=== PATIENT | male | born 1950 | race Caucasian/White ===

== ENCOUNTER → 2016-07-01 | Outpatient (CLI) | payer OTHER ==
[~2016-07-01] MED LIST: ACET-24 PO; BTP80 PO; CLC100 PO; CLR10 PO; DOCU-94 PO; ENOX120I SQ; FEXO1TAB49 PO; FLUT0.15 NAE; FRRG PO; KETO2SHA TOP; LDXS20 TOP; LSX20 PO; MORP-157 PO; RXC5 PO; SIMV-151 PO; SOTA80TA PO; SPR25 PO; TAMS0.4C38 PO; TRAM-10 PO; WARF-246 PO; WARF7.5T4 PO
[2016-07-01 12:35] LABS: CALCIUM 9.1 mg/dl (8.5-10.1)
[2016-07-01 12:40] LABS: ALT/SGPT 24 U/L (12-78); BLOOD UREA NITROGEN 17 mg/dl (7-18); BUN/CREATININE RATIO 22.1 (10-20); CARBON DIOXIDE 29 mmol/L (21-32); CHLORIDE 106 mmol/L (98-107); CHOLESTEROL 125 mg/dl (0-200); CREATININE 0.78 mg/dl (0.60-1.40); GLUCOSE 87 mg/dl (70-99); POTASSIUM 4.4 mmol/L (3.5-5.1); SODIUM 141 mmol/L (136-145)
[2016-07-01 12:43] LABS: CHOLESTEROL/HDL RATIO 2.8; HDL CHOLESTEROL 45 mg/dl; LDL CHOLESTEROL CALCULATED 66 mg/dl; TRIGLYCERIDES 68 mg/dl (0-150); VERY LOW DENSITY LIPOPROT CALC 14 mg/dl
[2016-07-01 12:53] LABS: URINE APPEARANCE CLEAR (CLEAR); URINE BILIRUBIN NEG (NEG); URINE COLOR YELLOW; URINE EPITHELIAL CELL AUTO 0-5 /lpf (0-5); URINE NITRITE NEG (NEG); URINE PH 6.5 (4.5-7.5); URINE SPECIFIC GRAVITY 1.019 (1.000-1.030); UROBILINOGEN NEG (NEG); ZZUR CULT IF INDIC CLEAN CATCH NO
[2016-07-01 13:08] LABS: MANUAL MICROSCOPIC REQUIRED? NO; REVIEW REQ? NO
== END | disposition home or self-care (01) ==
LOC: C.LABBFT 08:56
PROVIDERS: ATTEND Family Medicine
DX: R39.15 Urgency of urination (principal); I48.91 Unspecified atrial fibrillation; E78.5 Hyperlipidemia, unspecified

== ENCOUNTER → 2016-09-16 | Outpatient (CLI) | payer OTHER ==
[~2016-09-16] MED LIST changes: -ACET-24 PO; -FRRG PO; -MORP-157 PO
[2016-09-16 17:53] LABS: COMPLETE YES; EOS % 4.7 %; HEMATOCRIT 44.5 % (42-52); IG% 0.2 %; LYMPH % 23.6 %; MEAN CORPUSCULAR HEMOGLOBIN 30.8 pg (25-34); MEAN CORPUSCULAR HGB CONC 34.6 g/dl (32-36); MEAN PLATELET VOLUME 11.7 fL (7.4-10.4); MONO % 6.5 %; PLATELET COUNT 203 K/uL (130-400); WHITE BLOOD COUNT 8.49 K/uL (4.8-10.8)
[2016-09-16 18:03] LABS: ALT/SGPT 24 U/L (12-78); AST/SGOT 13 U/L (15-37); BLOOD UREA NITROGEN 19 mg/dl (7-18); BUN/CREATININE RATIO 22.6 (10-20); CARBON DIOXIDE 32 mmol/L (21-32); CHLORIDE 106 mmol/L (98-107); CREATININE 0.82 mg/dl (0.60-1.40); GLUCOSE 85 mg/dl (70-99); POTASSIUM 4.6 mmol/L (3.5-5.1); SODIUM 140 mmol/L (136-145)
[2016-09-16 18:06] LABS: ALKALINE PHOSPHATASE 68 U/L (45-117)
== END | disposition home or self-care (01) ==
LOC: C.LABBFT 11:34
PROVIDERS: ATTEND Family Medicine
DX: R19.7 Diarrhea, unspecified (principal)

== ENCOUNTER 2016-12-07 10:17 | Inpatient (IN) | payer OTHER ==
[2016-11-01 14:06] VITALS: BMI 35.0
--- NOTE | 2016-11-01 14:43 | PAT Medication Instructions ---
Service Date Nov 01, 2016. Current Home Medication List Docusate Sodium (Colace), 1 CAP PO QAM Fexofenadine Hcl (Yolande Allergy), 1 TAB PO QAM Fluocinonide (Fluocinonide), 1 APPLN TOP UD Fluticasone Propionate (Nasal) (Flonase Allergy Relief), 2 SPRAYS FABIO QPM Furosemide (Furosemide), 40 MG PO QAM Ketoconazole (Topical) (Ketoconazole), 1 APPLN TOP Q2D Simvastatin (Simvastatin), 20 MG PO HS Sotalol Hcl (Sotalol Hcl), 120 MG PO BID Spironolactone (Spironolactone), 25 MG PO QAM Tamsulosin Hcl (Flomax), 0.4 MG PO QPM Tramadol (Ultram), 100 MG PO TID PRN for Pain Warfarin Sod (Jantoven), 1.5 TAB PO 4XWEEK Warfarin Sodium (Warfarin Sodium), 7.5 MG PO MONWEDFRI Medication Instructions For Your Scheduled Surgery - Check with surgeon/coumadin clinic for instructions: Warfarin Sod (Jantoven), 1.5 TAB PO 4XWEEK Warfarin Sodium (Warfarin Sodium), 7.5 MG PO MONWEDFRI - Hold the following medications 24 hours prior to surgery: Ketoconazole (Topical) (Ketoconazole), 1 APPLN TOP Q2D Fluocinonide (Fluocinonide), 1 APPLN TOP UD - Hold the following medications the morning of surgery: Spironolactone (Spironolactone), 25 MG PO QAM Furosemide (Furosemide), 40 MG PO QAM Docusate Sodium (Colace), 1 CAP PO QAM Fexofenadine Hcl (Yolande Allergy), 1 TAB PO QAM - Take the following medications the morning of surgery with a sip of water: Tramadol (Ultram), 100 MG PO TID PRN for Pain (okay to take up to 4 hours prior to surgery if needed) Sotalol Hcl (Sotalol Hcl), 120 MG PO BID - Take the following medications as scheduled the night before surgery: Tramadol (Ultram), 100 MG PO TID PRN for Pain (if needed) Tamsulosin Hcl (Flomax), 0.4 MG PO QPM Sotalol Hcl (Sotalol Hcl), 120 MG PO BID Simvastatin (Simvastatin), 20 MG PO HS Fluticasone Propionate (Nasal) (Flonase Allergy Relief), 2 SPRAYS FABIO QPM If you have any questions please call us at [phone] or [phone] or [phone]
--- NOTE | 2016-11-01 15:25 | DIAGNOSTIC IMAGING REPORT ---
CHEST PREADMISSION(PA/LAT) CLINICAL HISTORY: Preoperative chest COMPARISON STUDY: 05/11/2015 FINDINGS: The heart is enlarged. There is no failure. There is no focal pulmonary consolidation. There are no pleural effusions. Postsurgical changes involve the left shoulder.[ IMPRESSION: Mild cardiomegaly. No acute findings. Electronically signed by: Riccardo Perez M.D. 11/01/2016 3:24 PM Dictated Date/Time: 11/01/2016 3:24 PM
[2016-11-01 16:18] LABS: BASO % 0.1 %; BASO ABS # 0.01 K/uL (0-0.2); COMPLETE YES; EOS % 3.2 %; HEMATOCRIT 43.7 % (42-52); IG% 0.1 %; LYMPH % 22.8 %; LYMPH ABS # 1.63 K/uL (1.2-3.4); MEAN CELL VOLUME 90.5 fL (80-100); MEAN CORPUSCULAR HGB CONC 33.2 g/dl (32-36); MEAN PLATELET VOLUME 11.7 fL (7.4-10.4); MONO % 6.7 %; NEUT % 67.1 %; PLATELET COUNT 186 K/uL (130-400); RED BLOOD COUNT 4.83 M/uL (4.7-6.1); WHITE BLOOD COUNT 7.16 K/uL (4.8-10.8)
[2016-11-01 16:37] LABS: INR 2.4 (0.9-1.1); PARTIAL THROMBOPLASTIN RATIO 1.5; PROTHROMBIN TIME (PATIENT) 26.5 SECONDS (9.0-12.0)
[2016-11-01 17:02] LABS: BLOOD UREA NITROGEN 18 mg/dl (7-18); BUN/CREATININE RATIO 25.4 (10-20); C-REACTIVE PROTEIN < 0.29 mg/dl (0-0.29); CARBON DIOXIDE 30 mmol/L (21-32); CHLORIDE 107 mmol/L (98-107); CREATININE 0.72 mg/dl (0.60-1.40); GLUCOSE 85 mg/dl (70-99); POTASSIUM 4.2 mmol/L (3.5-5.1); SODIUM 141 mmol/L (136-145)
--- NOTE | 2016-11-28 16:25 | HISTORY & PHYSICAL EXAMINATION ---
DATE OF ADMISSION: 12/07/2016 CHIEF COMPLAINT: Persistent left knee pain, discomfort and swelling. HISTORY OF PRESENT ILLNESS: The patient is a 66-year-old very active lang, who had his left knee replaced by Dr. Ann abdullahi in 1998. He did quite well for several years, but is a very active lang and over time, started develop pain and discomfort in his knee. I saw him back in 2008 and diagnosed with a loose knee replacement back then. His workup was all negative for infection including a normal C-reactive protein and a normal sed rate. We also aspirated his knee and cultures were negative. He kind of went about his way and then I saw him about a year ago and scheduled him for revision again. He canceled and decided to have his shoulder fixed. The shoulder has now recovered. He would now like to have his knee fixed. He describes persistent pain, discomfort and swelling in his knee. The more he walks, the more it hurts. He limps all day long and by the end of day, it gets pretty swollen. It also feels unstable. He would like to have this revised. Of note, the patient has a history of atrial fibrillation. He does report a history of stroke without residual sequelae back in 2011. He is on chronic Coumadin treatment. PAST MEDICAL HISTORY: Significant for, 1. Atrial fibrillation on Coumadin. 2. Hypertension. 3. Elevated cholesterol. 4. Sleep apnea. 5. History of TIA without sequelae. 6. Spine arthritis. 7. Obesity with a BMI of 35.6. PAST SURGICAL HISTORY: Includes: 1. Left knee arthroscopy. 2. Left total knee replacement done on 03/02/1996. 3. Umbilical hernia repair. 4. Forefoot reconstruction. 5. Reverse shoulder arthroplasty done in 2015. 6. Thrombectomy/pseudoaneurysm in 2011. ALLERGIES: None. CURRENT MEDICINES: Include, 1. Tramadol. 2. Warfarin, 4 days on 5 mg and 3 days on 7.5 mg. 3. Flomax. 4. Sotalol. 5. Simvastatin. 6. Spironolactone. 7. Unspecified med. 8. Yolande. 9. Probiotic. SOCIAL HISTORY: A 66-year-old male lang from [place]. 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 His tax associate is Dr. Ortega. Does not smoke. FAMILY HISTORY: Noncontributory. REVIEW OF SYSTEMS: Negative for diabetes. Denies any active neurological or vascular problems. He is on chronic Coumadin. History of TIA in the past. No sequelae. No history of DVT. PHYSICAL EXAMINATION: GENERAL: Physical examination reveals a large, middle-aged male. He looks to be in pretty good health. Looks older than stated age. HEENT: Benign. NECK: Supple. No lymphadenopathy. LUNGS: Clear to auscultation. HEART: Has an irregularly irregular rhythm. ABDOMEN: Soft, nontender, and nondistended. EXTREMITIES: Grossly neurovascularly intact except as follows: Examination of the left knee reveals the patient walks with the use of a cane. He has got a moderate sized knee effusion. Range of motion is full extension by 110 degrees of flexion. He does have laxity to varus valgus stressing. He has got a well-healed incision on the front of his knee. He has got an oblique medial incision from the previous open meniscectomy. X-RAYS: The x-rays of the left knee were reviewed. It shows a Biomet Maxim posterior stabilized total knee replacement. The knee looks pretty well aligned. There is some osteolysis and lucency underneath the tibial tray and lucency around the anterior flange of the femoral component. He has got some calcifications in his quad. LABORATORY DATA: Most recent sed rate is 9. C-reactive protein 0.29. His knee aspirate on 08/16/2015 revealed a 530 white cells with 15% polys and 85% mononuclear cells. Cultures were no growth. ASSESSMENT: A 66-year-old gentleman now 20 years out from a left knee replacement with significant osteolysis and loosening of likely both the femoral and tibial components. Negative infectious workup. PLAN: We talked about treatment. He would like to have his knee revised. We are going to take him to the operating room and do a left total knee replacement. As long as it is not infected, we will revise it. If there is a concern of infection, we will place an antibiotic spacer. The risks and benefits of this procedure were explained to the patient including, but not limited to DVT, PE, , infection, neurological injury, vascular injury, bleeding problem, pain, limited range of motion, stiffness, failure to relieve symptoms, incomplete relief of symptoms, persistent pain, infection, etc. The patient understands and desires to proceed. Informed consent was obtained. He will stop his Coumadin 5 days preop. He will likely need to bridge with Lovenox. We will have Dr. Ortega from him in the hospital. As far as discharge plans, he is planning to be discharged to home using [facility] home health program. He will need a stat PT and INR on the morning of surgery. MARY
[~2016-12-07] VITALS: Ht 179.1 cm; Wt 111.5 kg
[~2016-12-07 10:17] MED LIST changes: +ACETAMINOPHEN 500 MG TAB PO SCH; -BTP80 PO; +BUPIVACAINE 0.25% 30 ML VIAL ONE; +BUPIVACAINE 0.5 % 5 MG/1 ML PF 10ML VIAL ONE; +BUPIVACAINE LIPOSOME 266 MG, BUPIVACAINE/EPINEPHRINE INJ 50 ML, SODIUM CHLORIDE 0.9% PF... INFIL SCH; +CEFAZOLIN 2000 MG/60 ML D5W 60 ML IV SCH; -CLC100 PO; -CLR10 PO; -ENOX120I SQ; +FAMOTIDINE 20 MG TAB PO SCH; +FENTANYL CITRATE INJ 50 MCG/1 ML 2 ML VIAL ONE; +GABAPENTIN 300 MG CAP PO SCH; +LACTATED RINGER'S 1000ML 1,000 ML IV SCH; +LACTATED RINGER'S 1000ML 500 ML IV ONE; +LACTATED RINGER'S 1000ML IV SCH; +METOCLOPRAMIDE HCL 10 MG TAB PO SCH; +MIDAZOLAM HCL 1 MG/ML 2ML VIAL ONE; -RXC5 PO; +SCOPOLAMINE 1.5 MG TDSY TD SCH; -WARF7.5T4 PO
[2016-12-07] MEDS ORDERED: HYDROmorphone INJ 1 MG/ML SYR IV PRN (10:30)
[2016-12-07] MEDS ORDERED: EpHEDrine SULFATE INJ 50 MG/ML AMP IV PRN (10:30)
[2016-12-07] MEDS ORDERED: ONDANSETRON INJ 2 MG/ML 2 ML VIAL IV PRN ×2 (10:30→16:45)
[2016-12-07] MEDS ORDERED: PHENYLEPHRINE 100MCG/ML 5ML SYR IV PRN (10:30)
[2016-12-07] MEDS ORDERED: FENTANYL CITRATE INJ 50 MCG/1 ML 2 ML VIAL IV PRN (10:30)
[2016-12-07] MEDS ORDERED: ATROPINE SULFATE 0.1 MG/ML 5ML SYR IV PRN (10:30)
[2016-12-07 10:44] VITALS: BP 127/76; PULSE 70; TEMP 36.5; O2SAT 95; Ht 179.1 cm; Wt 111.5 kg
[2016-12-07] MEDS ORDERED: EpHEDrine SULFATE INJ 50 MG/ML AMP ONE (11:00)
[2016-12-07] MEDS ORDERED: ENOX120I SQ (11:17)
[2016-12-07 12:09] LABS: PARTIAL THROMBOPLASTIN RATIO 1.1; PROTHROMBIN TIME (PATIENT) 10.4 SECONDS (9.0-12.0)
--- NOTE | 2016-12-07 12:10 | History & Physical Bridge Note ---
H&P Re-Evaluation Bridge Note: I have examined the patient, reviewed the History & Physical and in the interval since the performance of the History & Physical I have noted the following changes of clinical significance: No changes noted
[2016-12-07] MEDS ORDERED: BACITRACIN 50000 UNIT VIAL ONE ×2 (12:17→15:37)
[2016-12-07] MEDS ORDERED: BUPIVACAINE/EPINEPHRINE 0.25% 1:200,000 30 ML VIAL ONE (12:17)
[2016-12-07] MEDS ORDERED: SODIUM CHLORIDE 0.9% PF 50 ML VIAL ONE (12:17)
[2016-12-07] MEDS ORDERED: BUPIVACAINE LIPOSOME 1/3% 266 MG/20 ML VIAL INFIL ONE (12:17)
[2016-12-07] MEDS ORDERED: VANCOMYCIN HCL 1000MG/20ML VIAL ONE (12:18)
[2016-12-07] MEDS ORDERED: MIDAZOLAM HCL 1 MG/ML 2ML VIAL ONE ×2 (12:45→14:08)
[2016-12-07] MEDS ORDERED: PROPOFOL IV EMULSION 10 MG/ML 20 ML VIAL IV ONE ×3 (12:46→16:09)
[2016-12-07] MEDS ORDERED: PHENYLEPHRINE 100MCG/ML 5ML SYR ONE (12:51)
[2016-12-07] MEDS ORDERED: FENTANYL CITRATE INJ 50 MCG/1 ML 2 ML VIAL ONE ×2 (15:06→16:40)
[2016-12-07] MEDS ORDERED: ONDANSETRON INJ 2 MG/ML 2 ML VIAL ONE (16:17)
[2016-12-07] MEDS ORDERED: HYDROmorphone INJ 2 MG/ML SYR/VIAL ONE (16:25)
[2016-12-07] MEDS ORDERED: CEFAZOLIN SOD 1 GM VIAL ONE (16:27)
--- NOTE | 2016-12-07 16:34 | [facility] Post Operative Brief Note ---
Immediate Operative Summary Operative Date Dec 07, 2016. Pre-Operative Diagnosis Left knee osteolysis, loosening of left total knee arthroplasty Post-Operative Diagnosis Left knee osteolysis, loosening of left total knee arthroplasty Procedure(s) Performed Left total knee revision, cemented Surgeon Dr. Daniel Metrology Engineer Surgeon(s) Apollo Burgos PA-C Estimated Blood Loss 200ml Findings Loose TKR Fluids (cc crystalloids) 2200 cc Specimens Microbiology #1- left knee joint fluid: gram stain, routine culture and sensitivity, anaerobic/aerobic, out of room at 1316 Frozen #1- left knee synovium: number of wbc's per high power field, out of room at 1323 Permanent Specimen A: Explanted hardware left knee Drains None Anesthesia Spinal + General Complication(s) None Disposition Recovery Room / PACU
[2016-12-07] MEDS ORDERED: MAGNESIUM HYDROXIDE SUSP 30 ML UDC PO PRN (16:45)
[2016-12-07] MEDS ORDERED: SILVER SULFADIAZINE 1% CR 50 GM JAR EXT PRN (16:45)
[2016-12-07] MEDS ORDERED: ALUMINUM/MAGNESIUM/SIMETH (MAALOX MAX) 30 ML UDC PO PRN (16:45)
[2016-12-07] MEDS ORDERED: TAMSULOSIN HCL 0.4 MG CAP PO PRN (16:45)
[2016-12-07] MEDS ORDERED: BISACODYL 10 MG SUPP PR PRN (16:45)
[2016-12-07] MEDS ORDERED: DiphenhydrAMINE HCL 50 MG/ML VIAL IV PRN (16:45)
[2016-12-07] MEDS ORDERED: ZOLPIDEM TARTRATE 5 MG TAB PO PRN (16:45)
[2016-12-07] MEDS ORDERED: HYDROmorphone INJ 0.5 MG/0.5 ML SYR IV PRN (16:45)
--- NOTE | 2016-12-07 17:21 | Anesthesiology Progress Note ---
Anesthesia Post Op Note Date & Time Dec 07, 2016 at 17:20 Vital Signs Pain Intensity: 0 Vital Signs Past 12 Hours Date Time Temp Pulse Resp B/P (MAP) Pulse Ox O2 Delivery O2 Flow Rate FiO2 12/07/16 17:10 63 16 114/71 97 Nasal Cannula 2 12/07/16 17:00 68 13 112/70 100 Oxymask 6 12/07/16 16:50 65 12 108/63 99 Oxymask 10 12/07/16 16:43 36.0 61 12 106/72 100 Oxymask 10 12/07/16 10:44 36.5 70 20 127/76 95 Room Air Notes Mental Status: alert / awake / arousable, participated in evaluation Pt Amnestic to Procedure: Yes Nausea / Vomiting: adequately controlled Pain: adequately controlled Airway Patency, RR, SpO2: stable & adequate BP & HR: stable & adequate Hydration State: stable & adequate Neuraxial Anesthesia: was administered, sensory block is resolving Anesthetic Complications: no major complications apparent Surgical procedure lasted significantly longer than anticipated. Spinal block became insufficient towards end of procedure and patient was converted to general anesthesia with an LMA for completion without incident.
[2016-12-07 17:40] VITALS: BP 107/68; PULSE 60; O2SAT 100
[2016-12-07] MEDS: CHECK SCOPOLAMINE PATCH PLACEMENT SCH ×2 (17:40→23:38)
--- NOTE | 2016-12-07 17:48 | DIAGNOSTIC IMAGING REPORT ---
LEFT KNEE 2 VIEWS History: Left total knee arthroplasty. Degenerative arthritis. Postop. FINDINGS: The patient is status post a left total knee arthroplasty. The hardware is intact. No fracture or dislocation. Skin anju are in place. IMPRESSION: Left total knee arthroplasty. No evidence for hardware complication. Electronically signed by: Pipe Garsia M.D. 12/07/2016 5:47 PM Dictated Date/Time: 12/07/2016 5:46 PM
[2016-12-07 18:45] VITALS: BP 105/72; PULSE 68; TEMP 36.9; O2SAT 99
[2016-12-07] MEDS: D5W AND 1/2NSS + 20MEQ KCL 1,000 ML IV SCH (18:55)
--- NOTE | 2016-12-07 18:56 | PROGRESS NOTE ---
DATE: 12/07/2016 SUBJECTIVE: A 66-year-old gentleman postop from a left total knee revision. Very complex revision with a lot of osteolysis. He is doing well. Not having any pain yet. No chest pain or shortness of breath. Not feeling dizzy or lightheaded. OBJECTIVE: VITAL SIGNS: Temperature is 36.1. Vital signs stable. GENERAL: Reveals a healthy, pleasant, middle-aged male. He is sitting up in bed and talking to his spouse. He looks comfortable. LUNGS: Clear to auscultation. HEART: Has an irregularly irregular rhythm. ABDOMEN: Soft, nontender, nondistended. EXTREMITIES: Grossly neurovascularly intact except as follows: Examination of the left leg reveals the dressing to be clean, dry, and intact. He can dorsiflex and plantarflex his foot appropriately. He is neurologically intact. X-RAYS: X-rays of the left knee from recovery room were reviewed. It shows a left cemented total knee revision. Components looked to be in good position. No signs of problems. ASSESSMENT: A 66-year-old gentleman postop from a left total knee revision. This is a very complex revision. He is doing well. His pain is controlled. Neurologically intact. PLAN: 1. DVT prophylaxis including thigh-high TEDs, SCDs, and back on his Coumadin starting tonight. We will load him with 10 mg. We will start prophylactic Lovenox 24 hours postoperatively. I think with the nature of his surgery, I think it is too aggressive to start more aggressive Lovenox immediately. 2. PT/OT. Weightbearing as tolerated. Left total knee protocol. 3. IV antibiotics x24 hours. 4. Pain control, doing well with current pain regimen. 5. DISPOSITION: He is being discharged to home with some home health once adequately recovered.
[2016-12-07 19:47] VITALS: BP 115/75; PULSE 81; TEMP 36.5; O2SAT 100
[2016-12-07] MEDS: KETOROLAC TROMETHAMINE 15 MG/ML VIAL IV. SCH (20:08)
[2016-12-07] MEDS: CEFAZOLIN IV 2,000 MG in SYRINGE 0 ML IV SCH (20:08)
[2016-12-07] MEDS: WARFARIN SOD 10 MG TAB PO SCH (20:10)
[2016-12-07] MEDS: FLUTICASONE PROPIONATE NA SPR 16 GM BTL NAE SCH (20:30)
[2016-12-07] MEDS: TAMSULOSIN HCL 0.4 MG CAP PO SCH (20:31)
[2016-12-07] MEDS: SIMVASTATIN 20 MG TAB PO SCH (20:32)
[2016-12-07] MEDS: DOCUSATE SODIUM 100 MG CAP PO SCH (20:32)
[2016-12-07] MEDS: SOTALOL HCL 80 MG TAB PO SCH (20:32)
[2016-12-07] MEDS: SENNA 8.6 MG TAB PO SCH (20:33)
[2016-12-07 20:45] VITALS: BP 132/80; PULSE 88; TEMP 36.4; O2SAT 97
[2016-12-07] MEDS: TAPENTADOL ER 50 MG TABCR PO SCH (20:50)
[2016-12-07] MEDS: ACETAMINOPHEN 500 MG TAB PO SCH (21:44)
[2016-12-07 23:00] VITALS: BP 115/75; PULSE 77; TEMP 36.9; O2SAT 96
--- NOTE | 2016-12-08 00:19 | OPERATIVE REPORT ---
DATE OF OPERATION: 12/07/2016 SURGEON: Jj Daniel MD. CONCRETE ROD BUSTER: KATLYN Rivera. PREOPERATIVE DIAGNOSIS: Aseptic loosening left total knee replacement. POSTOPERATIVE DIAGNOSIS: Aseptic loosening left total knee replacement with loosening of the femoral component, extensive osteolysis and polyethylene wear. PROCEDURE PERFORMED: Revision left total knee arthroplasty. COMPLICATIONS: None. ESTIMATED BLOOD LOSS: 200 mL FLUID REPLACEMENT: 2200 mL crystalloid fluid replacement. TOURNIQUET TIME: Two separate tourniquet times; first tourniquet time was 120 minutes at 300 mmHg, the tourniquet was then let down for 40 minutes and then back up for an additional 26 minutes at 300 mmHg. ANESTHESIA: Spinal with general. SPECIMENS: 1. Left knee implants. 2. Frozen section which revealed less than 5 polys per high-powered field. 3. Left knee joint fluid which revealed no WBCs, no organisms on Gram stain. OPERATIVE INDICATIONS: The patient is a 66-year-old lang who is 20+ years out from a left knee replacement. He did pretty well, but over the past 5-10 years, he has developed persistent pain, discomfort and instability and swelling in his knee. I saw him 5 years ago. He just put up with this for a long time until we actually scheduled for revision a year ago but he elected to have his shoulder done beforehand. He has now become more debilitated by his knee pain. He is using a cane to get along. He had an extensive workup including sed rate, C-reactive protein and several aspirations in the past which have all been negative. No growth. The patient indicated for surgical treatment. OPERATIVE FINDINGS: Operative findings revealed grossly loose femoral component. The tibial component was not loose. There was extensive osteolysis of the femur. He had extensive metaphysial bone loss. He did have some distal portions of the condyle intact to support the implant. He had less extensive osteolysis of the tibia. OPERATIVE IMPLANTS: Operative implants consisted of: 1. A Biomet Vanguard 360 posterior stabilized left femoral component with medial and lateral 5 mm distal augments with a 20 x 80 mm stem and 5 mm offset. 2. A 75 mm tibial tray with a 16 x 80 mm stem with a 5 mm offset and large cruciate wing. 3. An 18 mm posterior stabilized polyethylene. OPERATIVE PROCEDURE: The patient taken to the operating room, identified and placed on the operating table in supine position. All contact areas were appropriately padded. IV antibiotics provided by anesthesia team. Spinal anesthetic had been implemented in the holding area. Saucedo catheter was placed in sterile fashion. Left thigh tourniquet was then placed and left lower extremity was then prepped and draped in usual sterile fashion. Left leg was elevated and exsanguinated with Esmarch and tourniquet was placed at 300 mmHg. An anterior approach of the left knee was then performed through a longitudinal incision centered over the patella. Sharp dissection was carried out through the subcutaneous tissues down to the level of the extensor mechanism. A medial parapatellar arthrotomy incision was made. This fluid was sent off for analysis. Gram stain revealed no WBCs, no organisms. Complete synovectomy of the suprapatellar pouch and medial and lateral gutters was performed. The synovium was sent for frozen section which revealed less than 5 polys per high-powered field. We elected to proceed with rotation. I did an extensive synovectomy. I then removed the polyethylene. I then removed the femoral component using the Cierra extractor as it was grossly loose. Attention was then drawn to the tibia. The tibial interface was defined with the use of a curette and rongeur. I then used a small saw to break up the interface as best as possible. I then used a combination of stacked osteotome technique to try and elevate the tray. I then attached the Cierra extractor and removed the tibial tray with large portion of cement mantle as well. I then very carefully removed the remainder of the cement. We then went to prepare the bone. Attention was then drawn to the tibia. I reamed the tibia up to a size 16. I then used an intramedullary guide to cut the tibia about 2 mm off the most deficient aspect of the lateral tibial plateau which was the most deficient area. We then sized this to a size 75. I used a 5 offset adapter and prepared the tibia. A provisional tibial implant was placed and attention was then drawn to the femur. The distal femur was then entered with the intramedullary entry drill. I then reamed up to a size 20. I then used a 5-degree distal cutting block and cut the distal femur, taking 5 mm off the most prominent area of the medial femoral condyle soft tissue where we did get down to a bony condyle. It was fairly small. I then sized the femur to a 72.5. I then aligned the AP cutting block and adjusted it with the 5 mm offset device and pinned it in place. The anterior cut, anterior chamfer cuts, posterior cut, posterior chamfer cuts were made. I then assembled the provisional component. We made some slight adjustments to this and then implanted it. I then cut for the box. The femoral component trial was then assembled. We then placed this and at this point the tourniquet time was 120 minutes, we let the tourniquet down. I then trialed this and the 18 mm insert fit most appropriately. We then proceeded with assembling the implants. The tourniquet had been let down. I irrigated the wound extensively. I spent quite a bit of time getting rid of all the fibrous debris at both the tibial and femoral interfaces. There was a very large metaphyseal defect of the distal femur. After the components were assembled and I debrided this back to stable bone tissue, the tourniquet was then placed back up. I then mixed triple batch of Palacos G cement with 2 grams of vancomycin. I then implanted the femoral component, followed by the tibial component. We did leave a little bit of cement posteriorly on purpose as he had large voids and I wanted to try and make sure we had as much support for the component as possible. A trial implant was placed and knee was brought out into full extension until cement hardened. A final cement check was then performed. I then placed the permanent 18 mm insert. Attention was then drawn toward closing. I did inject locally with 100 mL of combination of 20 mL of Exparel, 30 mL of normal saline, 50 mL of 0.25% Marcaine with epinephrine. The tourniquet was then let down with second tourniquet time of 26 minutes. Hemostasis was assured with use of electrocautery. The wound was once again irrigated. The extensor mechanism was then closed with a combination of #1 PDS suture and #1 Vicryl suture in a [id number] fashion. Extensor mechanism was checked and found to be intact. Subcutaneous tissues were then closed with 2-0 Dexon suture in a buried interrupted fashion. Skin was closed with skin anju. Leg was then cleaned and dried, and a sterile dressing composed of Xeroform, 4 x 4's, sterile cast padding and Mikey bandage was applied. The patient was then brought out of general anesthesia and transferred to the recovery room in stable condition. The patient tolerated the procedure well with no complications. All needle and sponge counts were correct at the end of the operation. I attest to the content of the Intraoperative Record and any orders documented therein. Any exceptions are noted below. MTDD
[2016-12-08] MEDS: D5W AND 1/2NSS + 20MEQ KCL 1,000 ML IV SCH ×3 (01:58→18:11)
[2016-12-08] MEDS: KETOROLAC TROMETHAMINE 15 MG/ML VIAL IV. SCH ×3 (01:59→14:12)
[2016-12-08 03:12] VITALS: BP 107/69; PULSE 74; TEMP 36.7; O2SAT 95
[2016-12-08] MEDS: CEFAZOLIN IV 2,000 MG in SYRINGE 0 ML IV SCH (04:20)
[2016-12-08] MEDS: OXYCODONE HCL IR 5 MG TAB (IMMEDIATE RELEASE) PO PRN (05:18)
[2016-12-08] MEDS: ACETAMINOPHEN 500 MG TAB PO SCH ×3 (05:55→21:29)
[2016-12-08 06:12] LABS: HEMATOCRIT 32.9 % (42-52); MEAN CELL VOLUME 89.6 fL (80-100); MEAN CORPUSCULAR HEMOGLOBIN 30.2 pg (25-34); MEAN CORPUSCULAR HGB CONC 33.7 g/dl (32-36); MEAN PLATELET VOLUME 11.4 fL (7.4-10.4); PLATELET COUNT 146 K/uL (130-400); RED BLOOD COUNT 3.67 M/uL (4.7-6.1); WHITE BLOOD COUNT 8.63 K/uL (4.8-10.8)
[2016-12-08 06:38] LABS: PROTHROMBIN TIME (PATIENT) 10.9 SECONDS (9.0-12.0)
[2016-12-08 06:44] LABS: BUN/CREATININE RATIO 20.3 (10-20); CREATININE 0.72 mg/dl (0.60-1.40)
[2016-12-08 07:06] VITALS: BP 96/64; PULSE 87; TEMP 36.7; O2SAT 95
[2016-12-08] MEDS: CHECK SCOPOLAMINE PATCH PLACEMENT SCH ×3 (08:00→23:28)
[2016-12-08] MEDS ORDERED: RXC5 PO (08:33)
[2016-12-08] MEDS ORDERED: MORP-157 PO (08:33)
[2016-12-08] MEDS ORDERED: FRRG PO (08:33)
[2016-12-08 09:00] VITALS: BP 107/57
[2016-12-08] MEDS ORDERED: DOCUSATE SODIUM 100 MG CAP PO SCH (09:00)
[2016-12-08] MEDS: FUROSEMIDE 20 MG TAB PO SCH (09:00)
[2016-12-08] MEDS: SPIRONOLACTONE 25 MG TAB PO SCH (09:00)
[2016-12-08] MEDS: SOTALOL HCL 80 MG TAB PO SCH ×2 (09:00→21:28)
[2016-12-08] MEDS: FERROUS GLUCONATE 324 MG TAB PO SCH ×3 (09:14→18:10)
[2016-12-08] MEDS: TAPENTADOL ER 50 MG TABCR PO SCH ×2 (09:15→21:00)
[2016-12-08] MEDS: MULTIVITAMIN TAB PO SCH (09:15)
[2016-12-08] MEDS: DOCUSATE SODIUM 100 MG CAP PO SCH ×2 (09:15→21:26)
[2016-12-08] MEDS: FEXOFENADINE HCL 180 MG TAB PO SCH (09:15)
[2016-12-08] MEDS: PANTOprazole SOD 40 MG TAB PO SCH (09:16)
--- NOTE | 2016-12-08 10:33 | Cardiology Consultation ---
Cardiology Consultation Date of Consultation: Dec 08, 2016 Requesting Physician: Fredy Attending [facility]: Dorita (Renan Hernandez PA-C) History of Present Illness Mr. Anderson is a 66 year old male who is being seen at the request of Dr. Daniel. Reason for consultation is routine postoperative care. Primary outpatient [facility] is Dr. Michi Ortega. Patient is status post 12/07/2016 left total knee arthroplasty by Dr. Daniel Patient seen early today (~8:45 AM). Lone complaint is that of left knee discomfort. He denies chest pain, palpitations, or dyspnea. He denies cough, chest congestion, orthopnea, or PND. Notes chronically having "kankles." Appetite is down from his norm. (Renan Hernandez PA-C) Past Medical/Surgical History Problem List: Past Medical and Surgical History: Paroxysmal atrial fibrillation, predominantly controlled in sinus rhythm with sotalol per documentation. Past acute thrombotic stroke, right middle cerebral artery distribution, embolic , June of 2011, status post urgent thrombectomy. Small patent foramen ovale with minimal shunt. Chronic Coumadin anticoagulation Severe obstructive sleep apnea. 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 Prior cardiac catheterization November 2012 without coronary artery disease. Hypertension Dyslipidemia Deviated nasal septum 1988 Obesity, BMI not known Osteoarthrosis. Status post remote (1996) left knee replacement. Rotator cuff surgery Umbilical hernia repair (Renan Hernandez PA-C) Family History Family History: Father at 69 with Parkinson's disease. Mother with breast cancer, history of atrial fibrillation. Sister with colon cancer at 47. (Renan Hernandez PA-C) Cancer Diabetes mellitus Heart disease Hypertension (Jason Kevin, DO) Social History Social History: Nonsmoker. No smokeless tobacco use. No significant alcohol consumption. [employer]. (Renan Hernandez PA-C) Review Of Systems General: No fever or chills. Head: No headaches. Cardiovascular: See above. Pulmonary: See above. Gastrointestinal: No nausea, vomiting, or diarrhea Musculoskeletal: See above. Neurological: See above. Complete review of systems is as stated above, negative or noncontributory. (Renan Hernandez PA-C) Allergies Coded Allergies: Adhesives (Verified Allergy, Unknown, AGUILAR WITH SPECIAL TAPE FOR SHOULDER SURG, 11/01/16) NO KNOWN DRUG ALLERGIES (Verified Allergy, Unknown, NONE, 12/07/16) Medications Reported Home Medications Medications Dose Route/Sig Max Daily Dose Days Date Category Dose Instructions Ms Contin (Morphine Sulfate) 15 Mg Tab 15 Mg PO Q12 10 12/08/16 Rx Take for 10 days to lessen pain. Ferrous Gluconate 324 Mg Tab 324 Mg PO BIDM 30 12/08/16 Rx Take to restore blood count. Oxycodone HCl 5 Mg Tab 5-10 Mg PO Q6H PRN 30 12/08/16 Rx Take as needed for Pain. Lovenox (Enoxaparin Sodium) 120 Mg/0.8 Ml Inj 120 Mg SQ Q12H 12/07/16 Reported Warfarin Sodium 5 Mg Tab 1 Tab PO 4XWK 90 11/01/16 Reported SUN/TUES/THURS/SAT Flomax (Tamsulosin Hcl) 0.4 Mg Cap 0.4 Mg PO QPM 11/01/16 Reported Flonase Allergy Relief (Fluticasone Propionate (Nasal)) 50 Mcg/Act Spr 2 Sprays FABIO QPM 11/01/16 Reported Yolande Allergy (Fexofenadine Hcl) 180 Mg Tab 1 Tab PO QAM 14 11/01/16 Reported Colace (Docusate Sodium) 100 Mg Cap 1 Cap PO QAM 30 11/01/16 Reported Fluocinonide 20 Appln/20 Ml Soln 1 Appln TOP UD 05/17/14 Reported APPLY AFTER SHOWERING. Ketoconazole (Ketoconazole (Topical)) 2 % Sha 1 Appln TOP Q2D 05/17/14 Reported Simvastatin 20 Mg Tab 20 Mg PO HS 05/17/14 Reported Spironolactone 25 Mg Tab 25 Mg PO QAM 05/17/14 Reported Furosemide 20 Mg Tab 40 Mg PO QAM 05/17/14 Reported Warfarin Sodium 5 Mg Tab 7.5 Mg PO MONWEDFRI 05/17/14 Reported PM Sotalol Hcl 80 Mg Tab 120 Mg PO BID 12/27/13 Reported Ultram (Tramadol HCl) 50 Mg Tab 100 Mg PO TID PRN 09/29/13 Reported (Renan Hernandez PA-C) Physical Exam Vital Signs (Last 8hrs): Last 8 Hrs Date Time Temp Pulse Resp B/P (MAP) Pulse Ox O2 Delivery O2 Flow Rate FiO2 12/08/16 07:25 Room Air 12/08/16 07:06 36.7 87 16 96/64 (75) 95 Room Air 12/08/16 03:12 36.7 74 17 107/69 (82) 95 Room Air General Appearance: Alert and Oriented x3. NAD. Head: Normocephalic Atraumatic. Eyes: PER, EOMI, conjunctiva and sclera clear Neck: Supple. No carotid bruits noted. No overt JVD (70 degrees) Respiratory: Breath sounds clear to auscultation bilaterally. Cardiovascular: Irregularly irregular around 100 bpm. Soft systolic murmur. Abdomen: +BS. Soft. Nontender. No abdominal bruits. Extremities: Mild lower extremity edema on the right. No cyanosis. Distal pulses 1/4 bilaterally on the right. Dressing to the left lower extremity. Neuro: No focal deficits. Psychiatric: Normal affect. (Renan Hernandez PA-C) Data Last 24 Hours Test 12/07/16 11:05 12/08/16 05:33 Prothrombin Time 10.4 SECONDS 10.9 SECONDS Prothromb Time International Ratio 1.0 1.0 Activated Partial Thromboplast Time 29.2 SECONDS Partial Thromboplastin Ratio 1.1 White Blood Count 8.63 K/uL Red Blood Count 3.67 M/uL Hemoglobin 11.1 g/dL Hematocrit 32.9 % Mean Corpuscular Volume 89.6 fL Mean Corpuscular Hemoglobin 30.2 pg Mean Corpuscular Hemoglobin Concent 33.7 g/dl RDW Standard Deviation 42.1 fL RDW Coefficient of Variation 13.0 % Platelet Count 146 K/uL Mean Platelet Volume 11.4 fL Sodium Level 139 mmol/L Potassium Level 4.0 mmol/L Chloride Level 105 mmol/L Carbon Dioxide Level 30 mmol/L Anion Gap 4.0 mmol/L Blood Urea Nitrogen 15 mg/dl Creatinine 0.72 mg/dl Est Creatinine Clear Calc Drug Dose 125.5 ml/min Estimated GFR () 111.9 Estimated GFR (Non- 96.5 BUN/Creatinine Ratio 20.3 Random Glucose 116 mg/dl Calcium Level 8.0 mg/dl November 24, 2012 Coronary Angiography ([facility]): Left main: Large caliber vessel with mild disease. LAD: Mildly diseased. 1st diagonal: A small, mildly diseased. 2nd diagonal: Small, mildly diseased. The 3rd diagonal: Small, mildly diseased. LCX: Nondominant. 20% lesion in the proximal circumflex. RCA: Dominant. Mildly diseased November 03, 2016 TTE Interpretation Summary (as per Dr. Ortega): The left ventricular cavity size is normal. The LV wall thickness is mildly increased ( concentric). The basal septum is thickened and angulated consistent with sigmoid septum. The left ventricular wall motion is normal. The qualitative LV ejection fraction is 55-59% (normal). Mild aortic valve sclerosis is present. There is trace aortic insufficiency. The aortic root and proximal ascending aorta are mildly enlarged. There is focal thickening of the anterior mitral valve leaflet(s). There is borderline posterior mitral leaflet prolapse. Mild mitral regurgitation is present. The mitral regurgitation jet is eccentric. Moderate tricuspid regurgitation is present. Mild pulmonary hypertension is present. Telemetry: Nonmonitored bed. EKG: Requested, pending. (Renan Hernandez PA-C) Assessment & Plan 66-year-old male status post 12/07/2016 left total knee revision/replacement as described. As anticipated, patient has lapsed into atrial fibrillation ~100 bpm. DVT prophylaxis Lovenox ordered by Dr. Daniel initially given the nature of the procedure; Coumadin resumed 12/07/2016. Recommend full bridge back to proper Coumadin anticoagulation as soon as determined to be safe given the observed atrial fibrillation as well as history of prior embolic stroke. EKG requested. Sotalol to be continued as prescribed, 120 mg every 12 hours. Recommend holding furosemide and spironolactone this AM given observed hypotension, resuming later today or in the AM of 12/09/2016 as hemodynamics permit. Further recommendations pending the above as well as evaluation by Dr. Kevin. (Renan Hernandez PA-C) CARDIOLOGY ATTENDING ADDENDUM: The patient was seen and personally examined. Agree with Renan Hernandez PA-C's findings and plans as documented above. Continue current meds for AFib, pt. may be in chronic stages of AFib. (Jason Kevin, DO)
[2016-12-08 10:43] VITALS: BP 112/62; PULSE 86; TEMP 36.8; O2SAT 96
[2016-12-08] MEDS: METOCLOPRAMIDE HCL INJ 5 MG/ML 2 ML VIAL IV PRN (11:33)
--- NOTE | 2016-12-08 13:14 | PROGRESS NOTE ---
DATE: 12/08/2016 SUBJECTIVE: A 66-year-old gentleman with multiple underlying medical comorbidities postop day 1 from a left revision total knee replacement for aseptic loosening and extensive polyethylene wear. He is doing well. He is a bit sore but very manageable. No chest pain or shortness of breath. Not feeling dizzy or lightheaded. Had a little bit of some GI upset earlier but doing better now. OBJECTIVE: VITAL SIGNS: Temperature 36.8. Vital signs stable. PHYSICAL EXAMINATION: GENERAL: Reveals a pleasant, middle-aged male. He is sitting up in his bed eating lunch and looks pretty comfortable. EXTREMITIES: Examination of the left leg reveals dressing to be clean, dry, and intact. He can dorsiflex and plantarflex his foot appropriately. He is neurologically intact. LABORATORY DATA: Hemoglobin 11.1, hematocrit 32.9. Electrolytes are stable. His INR is 1.0. ASSESSMENT: A 66-year-old gentleman postop day 1 from a left complex revision knee arthroplasty. He is doing well. Pain is controlled. He is neurologically intact. PLAN: 1. DVT prophylaxis including thigh-high TEDs, SCDs, and back on his Coumadin. We bolused him just trying to get him in the therapeutic range as quick as possible. We will start him on prophylactic Lovenox 24 hours postop. I do not think it is mukherjee to put him on a heavier dose of Lovenox unless absolutely medically necessary due to the increased risk of bleeding. 2. PT/OT. Weightbearing as tolerated. Left total knee protocol. 3. Pain control, doing well with current pain regimen. 4. Disposition: He is hoping to discharge to home with some home health once adequately recovered.
[2016-12-08 15:26] VITALS: BP 125/72; PULSE 104; TEMP 36.6; O2SAT 94
[2016-12-08] MEDS ORDERED: WARFARIN SOD 5 MG TAB PO ONE (16:00)
[2016-12-08] MEDS: WARFARIN SOD 10 MG TAB PO SCH (18:10)
[2016-12-08] MEDS: ENOXAPARIN 30 MG/0.3 ML SYR SQ SCH (18:11)
[2016-12-08] MEDS ORDERED: ACET-24 PO (20:10)
--- NOTE | 2016-12-08 20:14 | Discharge Instructions ---
Discharge Instructions Date of Service Dec 08, 2016. Admission Reason for Admission: Left Knee Pain; Left Knee Degenerative Joint Disea Discharge Discharge Diagnosis / Problem: Left Knee Replacement Discharge Goals Goal(s): Decrease discomfort, Improve function, Increase independence, Improve disease control, Therapeutic intervention Activity Recommendations Activity Limitations: per Instructions/Follow-up section Weightbearing Status: Left weightbearing . Instructions / Follow-Up Instructions / Follow-Up ACTIVITY RECOMMENDATIONS: Physical Therapy: * You will go to physical therapy three times each week for four to six weeks after your surgery in order to regain your knee range of motion and to retrain your knee to work properly. * It is just as important to make sure you are getting your knee perfectly straight as it is to regain your knee bend. * Taking a pain pill an hour before therapy can help you have a more productive and comfortable therapy session. Home Exercise: * You were shown a series of exercises (heel props, heel slides, etc.) in the hospital. Do these exercises three to four times each day including the exercises you were shown in physical therapy. Walking: * Get up and walk several times each day. For the first four weeks, try not to stand or walk for more than one hour at a time. If you do stand or walk for more than one hour, you will not hurt anything, but your knee and leg will likely swell. * As you feel comfortable, you may change from the walker or crutches to a cane and then to independent walking. MEDICATIONS: New Medicine: * You will likely be taking one or more of these medications: 1. MS Contin - A long-acting pain medication. Take 1 tablet twice a day for the first ten days to decrease your baseline level of pain. 2. Oxycodone - A quick and shorter-acting pain medication. Take one to two tablets every four to six hours to lessen your pain. 3. Coumadin - Thins your blood to lessen the chance of forming a blood clot. The dose of this is different for each person and is based on your blood tests that are done every Tuesday and . * The most common side effects of pain medicine and iron are nausea and constipation. If nausea or constipation is too much of a problem or if you have any questions about your new medicines or doses, call [facility] at . We will try to help you manage these issues. VERY IMPORTANT TO READ AND REVIEW" Pain: * The immediate post-operative period after knee replacement surgery is often quite painful. * You are given a prescription for pain medicine. You should take it, as directed, when you need it, especially before physical therapy and before going to bed. Pain that interferes with sleep is very common and can last several months. * You will likely need pain medicine for the first four to six weeks. It will not stop all of the pain. The pain will lessen and as you feel better, you may change to milder pain medicine such as Tylenol. * The most common side effects of pain medicine are nausea and constipation, so don't take more than you need. SPECIAL CARE INSTRUCTIONS: TEDs/Elastic Stockings: * The white elastic stockings help limit swelling and prevent blood clots from forming in your legs. The more you wear them, the more they work. * Wear them for six weeks after knee replacement surgery and four weeks after partial knee replacement. Prevention of Infection: * Take antibiotics one hour before any dental cleaning, dental work, urological procedure, gastrointestinal procedure or any invasive surgery in order to prevent your new joint from getting infected. * You may get the antibiotics from the doctor performing the procedure or you may call our office at before and we will call in a prescription to the pharmacy of your choice. Things to Watch For: * Drainage from the incision site that occurs more than one week after your surgery. * Severely increased knee/leg pain or swelling. * Increased redness at the incision site. * Fever above 102 degrees Fahrenheit. * Unusual chest pain or shortness of breath. * Unusual pain or burning with urination. Call [facility] at with any of the above problems or if you have any questions about your medicines or recovery. FOLLOW UP VISIT: Make an appointment to see your doctor for approximately two weeks after surgery for a progress check and staple removal by calling the office at . Current Hospital Diet Patient's current hospital diet: Regular Diet Discharge Diet Recommended Diet: Regular Diet Procedures Procedures Performed: Left total knee revision, cemented Pending Studies Studies pending at discharge: no Medical Emergencies . Who to Call and When: Medical Emergencies: If at any time you feel your situation is an emergency, please call [phone] immediately. . Non-Emergent Contact Non-Emergency issues call your: Surgeon . "Provider Documentation" section prepared by Jj Daniel. . VTE Core Measure Inpt VTE Proph given/why not?: Warfarin (Coumadin), Radha Cowan, SCD's
[2016-12-08] MEDS: SENNA 8.6 MG TAB PO SCH (21:00)
[2016-12-08] MEDS: FLUTICASONE PROPIONATE NA SPR 16 GM BTL NAE SCH (21:28)
[2016-12-08] MEDS: SIMVASTATIN 20 MG TAB PO SCH (22:25)
[2016-12-08] MEDS: TAMSULOSIN HCL 0.4 MG CAP PO SCH (22:25)
[2016-12-08 23:25] VITALS: BP 107/68; PULSE 88; TEMP 36.5; O2SAT 93
[2016-12-09] MEDS: OXYCODONE HCL IR 5 MG TAB (IMMEDIATE RELEASE) PO PRN ×2 (02:00→06:00)
[2016-12-09] MEDS: D5W AND 1/2NSS + 20MEQ KCL 1,000 ML IV SCH ×2 (02:01→10:05)
[2016-12-09 05:51] LABS: INR 1.7 (0.9-1.1); PROTHROMBIN TIME (PATIENT) 18.8 SECONDS (9.0-12.0)
[2016-12-09] MEDS: ACETAMINOPHEN 500 MG TAB PO SCH ×2 (05:58→13:22)
[2016-12-09 06:00] VITALS: TEMP 36.7
[2016-12-09] MEDS: ENOXAPARIN 30 MG/0.3 ML SYR SQ SCH (06:05)
--- NOTE | 2016-12-09 07:39 | PROGRESS NOTE ---
DATE: 12/09/2016 SUBJECTIVE: 66-year-old gentleman postop day 2 from a left knee replacement. He is doing pretty well. Pretty painful last night, but doing a bit better this morning. No chest pain or shortness of breath. Not feeling dizzy or lightheaded. His reflux symptoms have improved. OBJECTIVE: VITAL SIGNS: Temperature is 36.7. Vital signs stable. PHYSICAL EXAMINATION: GENERAL: Reveals a healthy, pleasant, middle-aged male. He is sitting up in bed, looks reasonably comfortable. EXTREMITIES: Examination of the left leg reveals the dressing to be clean, dry, and intact. He can dorsiflex and plantarflex his foot appropriately. He is neurologically intact. LABORATORY DATA: INR is 1.7. ASSESSMENT: 66-year-old gentleman postop day 2 from a left knee replacement, doing well. Pain is reasonably well controlled. Medically appears stable. PLAN: 1. DVT prophylaxis including thigh-high TEDs, SCDs, and Coumadin. He is nearly therapeutic on his Coumadin. Will continue on Lovenox today and should be therapeutic on his Coumadin by tomorrow. 2. PT/OT. Weightbearing as tolerated. Left total knee protocol. 3. Pain control, doing well with current pain regimen. 4. Cardiac care as per the upsetting machine operator. 5. Disposition: Plan to discharge to home with some home health later today.
[2016-12-09] MEDS: CHECK SCOPOLAMINE PATCH PLACEMENT SCH (07:52)
[2016-12-09] MEDS: METOCLOPRAMIDE HCL INJ 5 MG/ML 2 ML VIAL IV PRN (07:56)
[2016-12-09 08:08] VITALS: BP 103/57; PULSE 105; TEMP 36.7; O2SAT 96
[2016-12-09] MEDS: FUROSEMIDE 20 MG TAB PO SCH (09:00)
[2016-12-09] MEDS: SOTALOL HCL 80 MG TAB PO SCH (09:00)
[2016-12-09] MEDS: SPIRONOLACTONE 25 MG TAB PO SCH (09:00)
[2016-12-09] MEDS: TAPENTADOL ER 50 MG TABCR PO SCH (09:00)
[2016-12-09] MEDS: MULTIVITAMIN TAB PO SCH (09:26)
[2016-12-09] MEDS: FERROUS GLUCONATE 324 MG TAB PO SCH ×2 (09:26→13:22)
[2016-12-09] MEDS: PANTOprazole SOD 40 MG TAB PO SCH (09:26)
[2016-12-09] MEDS: FEXOFENADINE HCL 180 MG TAB PO SCH (09:27)
--- NOTE | 2016-12-09 09:48 | Cardiology Follow-Up ---
Subjective General Date of Service: Dec 09, 2016. Chief Complaint: S/P 12/07/2016 left total knee arthroplasty by Dr. Daniel Pt evaluation today including: conversation w/ patient, physical exam, chart review, lab review, review of studies, review of inpatient medication list History of Present Illness Patient seen and examined. Notes issues yesterday and last night including nausea, left knee discomfort, "too much time between pain meds." Notes being "mixed up about things last night," resolved. Notes speaking to his this AM who noted how much better he sounded. Denies chest pain or shortness of breath. Intermittently aware of some "mild flutters." No lightheadedness, dizziness, near syncope, or syncope. No orthopnea, PND, or worsening peripheral edema. Allergies Coded Allergies: Adhesives (Verified Allergy, Unknown, AGUILAR WITH SPECIAL TAPE FOR SHOULDER SURG, 11/01/16) NO KNOWN DRUG ALLERGIES (Verified Allergy, Unknown, NONE, 12/07/16) Social History Hx Tobacco Use In Past Year?: No Hx Alcohol Use - Type And Amou: No ( ) Hx Substance Use - Type And Am: No Problem List Medical Problems: (1) Bleeding on Coumadin Status: Acute Physical Exam Vital Signs Last Vital Signs Documentation Date Time Temp Pulse Resp B/P (MAP) Pulse Ox O2 Delivery O2 Flow Rate FiO2 12/09/16 08:08 36.7 105 16 103/57 (72) 96 Room Air 12/07/16 19:47 2.0 Physical Exam Constitutional: Level of Distress: NAD Psychiatric: Mental Status: active & alert Orientation: to time, to place, to person Memory: recent memory normal, remote memory normal Head: normocephalic, atraumatic Neck: pertinent finding (No overt JVD) Lungs: Respiratory effort: no dyspnea Auscultation: breath sounds normal, no wheezing, no rales/crackles, no rhonchi Cardiovascular: Heart Auscultation: tachycardia, II/ PHYLLIS, irregular rate rhythm Peripheral Pulses: Radial Pulse: normal on the left, normal on the right Dorsalis Pedis Pulse: decreased on the left, decreased on the right Abdomen: Bowel Sounds: normal Extremities: no cyanosis, no clubbing, edema Neurologic: Cranial Nerves: grossly intact Assessment and Plan Assessment and Plan Status post 12/07/2016 left total knee revision/replacement History of paroxysmal atrial fibrillation (? progressing per persistent/ permanent) RECOMMENDATIONS: Continue Sotalol for now Lovenox bridge back to proper Coumadin anticoagulation given observed atrial fibrillation as well as history of prior embolic stroke Resume furosemide and spironolactone as previously prescribed. Recommend follow-up with Dr. Ortega post discharge to consider alternative management. CARDIOLOGY ATTENDING ADDENDUM: The patient was seen and personally examined. Agree with Renan Hernandez PA-C's findings and plans as documented above. Laboratory Results Last 24 Hours Test 12/09/16 05:27 Prothrombin Time 18.8 SECONDS Prothromb Time International Ratio 1.7
[2016-12-09] MEDS: DOCUSATE SODIUM 100 MG CAP PO SCH (10:12)
[2016-12-09 10:32] VITALS: BP 103/57; PULSE 105; TEMP 36.7; O2SAT 96
[2016-12-09] MEDS ORDERED: WARFARIN SOD 7.5 MG TAB PO ONE (16:00)
== END 2016-12-09 14:15 | disposition home health service (06) | DRG 468 ==
LOC: C.ACU 10:17 → C.3E 10:46 → ENRESERV 17:06
PROVIDERS: ADMIT Orthopaedic Surgery Sports Medicine; ATTEND Orthopaedic Surgery Sports Medicine
PROC: 0SWU0JZ Revision of Synthetic Substitute in Left Knee Joint, Femoral Surface, Open Approach (ICD-10-PCS; principal; 2016-12-07 12:45)
PROC: 0SWW0JZ Revision of Synthetic Substitute in Left Knee Joint, Tibial Surface, Open Approach (ICD-10-PCS; principal; 2016-12-07 12:45)
DX: T84.033A Mechanical loosening of internal left knee prosthetic joint, initial encounter (principal); I48.91 Unspecified atrial fibrillation; I10 Essential (primary) hypertension; E78.00 Pure hypercholesterolemia, unspecified; G47.00 Insomnia, unspecified; E66.9 Obesity, unspecified; Z68.35 Body mass index [BMI] 35.0-35.9, adult; Z79.01 Long term (current) use of anticoagulants; Z79.899 Other long term (current) drug therapy; Y83.1 Surgical operation with implant of artificial internal device as the cause of abnormal reaction of the patient, or of later complication, without mention of misadventure at the time of the procedure; Y79.2 Prosthetic and other implants, materials and accessory orthopedic devices associated with adverse incidents; Z86.73 Personal history of transient ischemic attack (TIA), and cerebral infarction without residual deficits

== ENCOUNTER → 2016-12-20 | Outpatient (CLI) | payer OTHER ==
[~2016-12-20] MED LIST changes: +ACET-24 PO; -ACETAMINOPHEN 500 MG TAB PO SCH; -BUPIVACAINE 0.25% 30 ML VIAL ONE; -BUPIVACAINE 0.5 % 5 MG/1 ML PF 10ML VIAL ONE; -BUPIVACAINE LIPOSOME 266 MG, BUPIVACAINE/EPINEPHRINE INJ 50 ML, SODIUM CHLORIDE 0.9% PF... INFIL SCH; -CEFAZOLIN 2000 MG/60 ML D5W 60 ML IV SCH; -FAMOTIDINE 20 MG TAB PO SCH; -FENTANYL CITRATE INJ 50 MCG/1 ML 2 ML VIAL ONE; +FRRG PO; -GABAPENTIN 300 MG CAP PO SCH; -LACTATED RINGER'S 1000ML 1,000 ML IV SCH; -LACTATED RINGER'S 1000ML 500 ML IV ONE; -LACTATED RINGER'S 1000ML IV SCH; -METOCLOPRAMIDE HCL 10 MG TAB PO SCH; -MIDAZOLAM HCL 1 MG/ML 2ML VIAL ONE; +RXC5 PO; -SCOPOLAMINE 1.5 MG TDSY TD SCH
[2016-12-20 10:35] LABS: INR 2.2 (0.9-1.1); PROTHROMBIN TIME (PATIENT) 24.1 SECONDS (9.0-12.0)
--- NOTE | 2017-01-07 12:34 | CODING QUERY NO DIAGNOSIS ---
Valid Physician Order Needed A valid physician order must be submitted in order to properly bill for the service(s) provided, including date of service(s), valid diagnosis, and physician signature. If these tests are done on a recurring basis the original physican order must be submitted in order to code and bill for the service(s) provided. Please fax us the original, signed physician order so that we may expedite billing to [phone] DOS 12/20/16 * PT/INR Thank you [facility] Information Management
== END | disposition home or self-care (01) ==
LOC: C.LABSPEC 10:17
PROVIDERS: ATTEND Orthopaedic Surgery Sports Medicine
DX: I48.91 Unspecified atrial fibrillation (principal); Z47.1 Aftercare following joint replacement surgery; I10 Essential (primary) hypertension

== ENCOUNTER → 2017-09-26 | Outpatient (CLI) | payer OTHER ==
[~2017-09-26] MED LIST changes: +SPIR25TA6 PO; -SPR25 PO
[2017-09-26 12:48] LABS: ALT/SGPT 20 U/L (12-78); BLOOD UREA NITROGEN 19 mg/dl (7-18); CALCIUM 8.7 mg/dl (8.5-10.1); CARBON DIOXIDE 31 mmol/L (21-32); CHOLESTEROL 100 mg/dl (0-200); CREATININE 0.84 mg/dl (0.60-1.40); GLUCOSE 85 mg/dl (70-99); LDL CHOLESTEROL CALCULATED 44 mg/dl; POTASSIUM 4.1 mmol/L (3.5-5.1); SODIUM 137 mmol/L (136-145)
== END | disposition home or self-care (01) ==
LOC: C.LABBFT 09:15
PROVIDERS: ATTEND Family Medicine
DX: E78.5 Hyperlipidemia, unspecified (principal)

== ENCOUNTER 2024-01-29 19:59 | Inpatient (IN) ==
[2024-01-29 20:25] LABS: Basophils # (auto) 0.01 K/uL (0.00-0.20); Basophils % (auto) 0.2 %; Eosinophils # (auto) 0.04 K/uL (0.00-0.50); Eosinophils % (auto) 0.6 %; Hematocrit (blood only) 44.4 % (42.0-52.0); Hemoglobin 15.1 g/dl (14.0-18.0); Immature Granulocytes # (auto) 0.02 K/uL (0.01-0.20); Immature Granulocytes % (auto) 0.3 %; Lymphocytes # (auto) 0.52 K/uL (1.20-3.40); Mean Corpuscular Hemoglobin 30.5 pg (25.0-34.0); Mean Corpuscular Volume 89.7 fL (80.0-100.0); Mean Platelet Volume 11.5 fL (9.4-12.4); Monocytes # (auto) 0.69 K/uL (0.11-0.59); Monocytes % (auto) 10.6 %; Neutrophils # (auto) 5.26 K/uL (1.40-6.50); Neutrophils % (auto) 80.3 %; Platelet Count 161 K/uL (130-400); RDW Coefficient of Variation 12.5 % (11.5-14.5); Red Blood Count 4.95 M/uL (4.70-6.10); White Blood Count 6.54 K/ul (4.8-10.8)
[2024-01-29 20:43] LABS: Alanine Aminotransferase 8 U/L (7-52); Albumin Globulin Ratio 1.5 (0.9-2); Albumin Level 4.2 gm/dl (3.4-5.0); Alkaline Phosphatase 60 U/L (34-104); Anion Gap 7 (3-11); Aspartate Aminotransferase 16 U/L (13-39); BUN Creatinine Ratio 20.9 (10-20); Bilirubin,Total 1.5 mg/dl (0.2-1.0); Blood Urea Nitrogen 19 mg/dl (6-23); Calcium 9.1 mg/dl (8.6-10.3); Carbon Dioxide 30 mmol/L (21-32); Chloride 99 mmol/L (98-107); Globulin 2.8 gm/dl (2.5-4.0); Glucose 108 mg/dl (70-99(Fasting)); Potassium 3.8 mmol/L (3.5-5.1); Sodium 136 mmol/L (136-145)
[2024-01-29 20:48] LABS: Troponin I High Sensitivity 9.4 pg/ml (0-20)
[2024-01-29 20:56] LABS: INR 1.1 (0.9-1.1); Partial Thromboplastin Ratio 1.2; Partial Thromboplastin Time 31 Seconds (21-31); Prothrombin Time 11.6 Seconds (9.0-12.0)
[2024-01-29 21:09] LABS: Adenovirus PCR Not Detected (NotDetected); Bordetella parapertussis PCR Not Detected (NotDetected); Bordetella pertussis PCR Not Detected (NotDetected); Chlamydia pneumoniae PCR Not Detected (NotDetected); Coronavirus 229E PCR Not Detected (NotDetected); Coronavirus CoV-2 (COVID19)PCR DETECTED (NotDetected); Coronavirus HKU1 PCR Not Detected (NotDetected); Coronavirus NL63 PCR Not Detected (NotDetected); Coronavirus OC43PCR Not Detected (NotDetected); Human Metapneumovirus PCR Not Detected (NotDetected); Influenza A PCR Not Detected (NotDetected); Influenza B PCR Not Detected (NotDetected); Mycoplasma pneumoniae PCR Not Detected (NotDetected); Parainfluenza Virus 1 PCR Not Detected (NotDetected); Parainfluenza Virus 2 PCR Not Detected (NotDetected); Parainfluenza Virus 3 PCR Not Detected (NotDetected); Parainfluenza Virus 4 PCR Not Detected (NotDetected); Respiratory Syncytial VirusPCR Not Detected (NotDetected); Rhinovirus/Enterovirus PCR Not Detected (NotDetected)
[2024-01-29] MEDS: ACETAMINOPHEN 500 MG TAB PO STA (21:23)
[2024-01-29] MEDS: dexAMETHasone**PF** 10 MG/ML VIAL IV ONE (21:24)
[2024-01-29] MEDS: METOPROLOL TARTRATE 1 MG/ML VIAL IV STA (21:48)
--- NOTE | 2024-01-29 22:07 | Emergency Department Note ---
Impression & Plan COVID-19, Atrial fibrillation with RVR, Hypoxia ED Provider Note NAME: JESS TROY AGE: 73 SEX: Male INFORMANT: Patient and ED PROVIDER(S): Shahid Madera MD CHIEF COMPLAINT: Fatigue and weakness PLAN: Disposition: Admitted Outpatient prescription management: none Referral: None MEDICAL DECISION MAKING: Patient presented because of fatigue and weakness. Workup was initiated. He was found to be in rapid atrial fibrillation. His CBC and chemistry panels were unremarkable. LFTs and troponin were negative. He had a BioFire performed and this was positive for COVID-19. Patient was given Tylenol and supplemental oxygen due to mild fever and hypoxia. He was also started on IV Decadron. He did not take his metoprolol this evening and was mildly tachycardic. He was given IV metoprolol. He will need further management in the hospital. Consultation was made with Dr. Veronica Daniel of the [facility] service. Patient was evaluated in the ER for further management. Care/management discussed with: assistant quality manager Level of care consideration(s): After review of the information above and other included data, I feel the patient requires escalation of care to admission Triage Nursing notes: reviewed and agree them. Vital Signs: reviewed and remarkable for tachycardia and fever Additional History obtained from: Patient's . She notes that her son who lives with him has a sinus infection Chronic Medical/Social Conditions affecting care: Atrial fibrillation, anticoagulation Prior/ Outside/ External records reviewed: none Differential Diagnosis: Infection, dehydration, metabolic abnormality, hypo/hyperglycemia, electrolyte disturbance, anemia, hypoxia, cardiac sources, intracerebral event, toxicologic, neurologic, as well as other pathologies. Diagnostics, independently interpreted by me: ECG: Twelve-lead ECG was atrial fibrillation with RVR [address] Cardiac Monitoring: Cardiac monitoring ordered by me: The patient was placed on continuous cardiac monitoring and observed. It revealed atrial fibrillation at 122 bpm. Medical decision rules: none Imaging studies: Chest x-ray. Findings: A chest x-ray was performed and revealed no pneumothorax, effusion, infiltrate, pulmonary edema, free air under the diaphragm, or wide mediastinum. Mild bronchitis noted HPI: 73 year old Male arrives for evaluation of fatigue and weakness. This started 2 to 3 days and is worsening. The patient also notes the following associated symptoms, mild cough and congestion. Decreased appetite, fevers, chills, noted as well. The patient has has found no relieving factors. Current pain is rated as 0/10. Patient states that his son had "a sinus infection this week". Patient did not take his evening medications including his metoprolol. He does have a history of A-fib. Pt denies LOC, headache, diaphoresis, visual changes, neck pain, chest pain, breathing difficulties, nausea, vomiting, abdominal pain, back pain, melena, hematochezia, urinary symptoms, numbness, lymphadenopathy, rash, or other complaints. PAST MEDICAL HISTORY: See Below, A-fib, hypertension PAST SURGICAL HISTORY: See Below, SOCIAL HISTORY: See Below, HOME MEDICATIONS: See Below ALLERGIES: See Below VITALS: See Below PHYSICAL EXAMINATION: GENERAL: Awake, alert, ill-appearing, in no distress HENT: Normocephalic, atraumatic. Oropharynx unremarkable. EYES: Normal conjunctiva. Sclera non-icteric. NECK: Inspection normal. Non-tender. Supple. No nuchal rigidity. FROM. No masses. RESPIRATORY: Clear to auscultation. No wheezes. No rales. Normal respiratory effort. CARDIAC: Tachycardic rate. Irregular rhythm. No murmurs. No rubs. Extremities warm and well perfused. Pulses equal. No JVD. GI: Soft, non-distended. No tenderness to palpation. No rebound or guarding. No masses. RECTAL: Deferred. MUSCULOSKELETAL: Atraumatic. Chest examination reveals no tenderness. The back is symmetrical on inspection without obvious abnormality. There is no CVA tenderness to palpation. No joint edema. LOWER EXTREMITIES: Calves are equal size bilaterally and non-tender. 1+ edema. Chronic venous discoloration. NEURO: Normal sensorium. No sensory or motor deficits noted. SKIN: No rash or jaundice noted. PROCEDURES: none CRITICAL CARE: none OBSERVATION NOTE: none Past Med/Surg History Problem List Hypoxia (Acute) Atrial fibrillation with RVR (Acute) COVID-19 (Acute) Chronic venous insufficiency Trigger finger of left hand 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 Ascending aorta enlargement mild to moderate per cardio records Aortic root dilation mild to moderate per cardio records Hypertension (Chronic) Headache (Acute) Rotator cuff arthropathy Atrial fibrillation (Acute 05/23/12) F/U DR TERRANCE ORTEGA Depression Chronic pain Right knee DJD Calcific Achilles tendinitis of right lower extremity History of CVA (cerebrovascular accident) 06/22/2011-RESIDUAL EFFECTS SHORT TERM MEMORY LOSS, EASILY TIRED Chronic anticoagulation apixaban Chronic knee pain after total replacement of left knee joint Chronic pain in right foot Myofascial pain (Chronic) Pes anserinus tendonitis of left lower extremity Urinary incontinence Hammer toe of right foot Idiopathic polyneuropathy Rheumatoid arthritis Positional lightheadedness Positional vertigo Tinnitus Sensorineural hearing loss (SNHL) of both ears Gait abnormality Chronic maxillary sinusitis Imbalance Acquired deviated nasal septum B12 deficiency Left knee pain Medical History PFO (patent foramen ovale) follows with [facility] cardiology, Dr. Terrance Ortega Chronic back pain Sleep apnea UNABLE TO TOLERATE CPAP Pneumothorax HX Surgical History History of endoscopic sinus surgery 11/27/21-Dr. Littlejohn History of nasal septoplasty 11/27/21-Dr. Littlejohn Hx of colonoscopy Hx of cardiac cath 2011 - [facility]; DONE TO CHECK FOR BLOCKAGE AFTER CVA; NO STENTS, NO BLOCKAGE FOUND- History of left knee replacement x2. S/P shoulder joint replacement LEFT S/P hernia repair S/P bunionectomy RIGHT-WITH RECONSTRUCTION FOOT Family History Mother , age 89 of heart issues Breast cancer Heart disease Sister Colorectal cancer Brother Diabetes Sister Diabetes Father , age 69 with Parkinson's disease Primary Parkinson's disease Other No family history of adverse response to anesthesia No family history of bleeding disorder Denies family history of Ovarian cancer Prostate cancer Myocardial infarction Social History Smoking Status: Never smoker Second Hand Exposure: No; Do You Dip or Chew Tobacco: No; Hx Alcohol Use: No Hx Substance Use: No Preferred Language: Chinese Communication Ability: Effective Visual Impairment: No Limitations Hearing Ability: Normal Test Kitchen Home Economist Required: No Beliefs That Will Affect Care: None marital status: Current Living Situation: Spouse current occupational status: retired current occupation: mostly retired lang, 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 Feels Safe at Home: Yes Childhood Exposure to Second-Hand Smoke: Yes Diet: regular caffeine: Yes during the past year weight has: remained stable Dental Care, Regularly: No Physical Activity Frequency: Daily Seatbelt Use: always Sunscreen Use: No Assistive Devices: Cane, Denture - Upper and Glasses Allergies Allergies Allergy/AdvReac Type Severity Reaction Status Date / Time latex Allergy Mild Redness of Verified 10/07/23 14:28 Skin tapentadol [From Nucynta] Allergy Mild hallucinati Verified 10/07/23 14:28 ons adhesive Allergy Unknown AGUILAR WITH Verified 10/07/23 14:28 SPECIAL TAPE FOR SHOULDER SURG duloxetine AdvReac Mild dizziness, Verified 10/07/23 14:28 balance issues Loratadine TBDP AdvReac Unknown Unknown Uncoded 10/07/23 14:28 Home Meds Home Medications Medication Instructions Recorded Confirmed docusate sodium 100 mg capsule 100 mg PO QAM 03/06/19 01/29/24 (Stool Softener) apixaban 5 mg tablet (Eliquis) 5 mg PO BID 09/06/19 01/29/24 furosemide 40 mg tablet 40 mg PO QAM 06/12/20 01/29/24 digoxin 125 mcg (0.125 mg) tablet 125 mcg PO UD 10/29/21 01/29/24 metoprolol succinate 50 mg 25 mg PO QPM 09/27/22 01/29/24 tablet,extended release 24 hr Previous Rx's Medication Instructions Recorded amoxicillin 500 mg capsule 2,000 mg (4 x 500 mg) PO ONCE #8 05/21/20 caps cholecalciferol (vitamin D3) 50 50 mcg PO DAILY #30 caps 06/10/21 mcg (2,000 unit) capsule spironolactone 25 mg tablet 12.5 mg (1/2 x 25 mg) PO DAILY #30 09/16/21 tabs mecobalamin (vitamin B12) 1,000 1,000 mcg sublingual DAILY #30 tabs 11/05/21 mcg disintegrating tablet,sublingual tamsulosin 0.4 mg capsule 0.8 mg (2 x 0.4 mg) PO PM #180 caps 01/04/23 fluocinonide 0.05 % topical 1 applic topical BID #60 mL 03/22/23 solution miscellaneous medical supply 1 ea miscellaneous ONCE Post total 12/07/23 knee replacement #1 ea ketoconazole 2 % shampoo 1 applic topical Q3D #120 mL 12/27/23 tramadol 50 mg tablet 100 mg (2 x 50 mg) PO TID #180 tabs 01/23/24 Results & Data (ED) Vital Signs Vital Signs - 24 hr 01/29/24 20:02 01/29/24 21:05 01/29/24 21:11 Temperature 37.1 C 38.5 C H Temperature Source Oral Oral Pulse Rate 118 H 103 H Pulse Rate [Apical] 117 H Pulse Rhythm [Apical] Regular Pulse Strength [Apical] Normal Respiratory Rate 16 18 Respiratory Effort / Characteristics Non-Labored Spontaneous Non-Labored Respiratory Depth Normal Normal Blood Pressure 145/85 H Blood Pressure [Right Arm] 155/85 H Blood Pressure Mean 105 Blood Pressure Mean [Right Arm] 108 Pulse Oximetry 93 88 L Oxygen Delivery Method Room Air Room Air Sepsis Recent Fever Within 48 Hours No Sepsis New/Unexplained Change in Mental Status No Sepsis Action Taken by Nursing No Action Required Oxygen Flow Rate - Titration Pulse Oximetry Post Tiitration 01/29/24 21:19 01/29/24 21:48 01/29/24 22:56 Temperature 36.9 C Temperature Source Oral Pulse Rate 104 H Pulse Rate [Apical] 94 H Pulse Rhythm [Apical] Regular Pulse Strength [Apical] Normal Respiratory Rate 18 Respiratory Effort / Characteristics Non-Labored Spontaneous Respiratory Depth Normal Blood Pressure 144/81 H Blood Pressure [Right Arm] 123/62 Blood Pressure Mean Blood Pressure Mean [Right Arm] 82 Pulse Oximetry 88 L 100 Oxygen Delivery Method Room Air Room Air Sepsis Recent Fever Within 48 Hours Sepsis New/Unexplained Change in Mental Status Sepsis Action Taken by Nursing Oxygen Flow Rate - Titration 2 Pulse Oximetry Post Tiitration 96 Laboratory Data 01/29/24 20:11 01/29/24 20:11 Lab Results 01/29/24 Range/Units 20:11 WBC 6.54 (4.8-10.8) K/ul RBC 4.95 (4.70-6.10) M/uL Hgb 15.1 (14.0-18.0) g/dl Hct 44.4 (42.0-52.0) % MCV 89.7 (80.0-100.0) fL MCH 30.5 (25.0-34.0) pg MCHC 34.0 (32.0-36.0) g/dL RDW Std Deviation 41.0 (36.4-46.3) fL RDW Coeff of Abby 12.5 (11.5-14.5) % Plt Count 161 (130-400) K/uL MPV 11.5 (9.4-12.4) fL Immature Gran % (Auto) 0.3 % Neut % (Auto) 80.3 % Lymph % (Auto) 8.0 % [place] % (Auto) 10.6 % Eos % (Auto) 0.6 % Baso % (Auto) 0.2 % Neut # (Auto) 5.26 (1.40-6.50) K/uL Lymph # (Auto) 0.52 L (1.20-3.40) K/uL [place] # (Auto) 0.69 H (0.11-0.59) K/uL Eos # (Auto) 0.04 (0.00-0.50) K/uL Baso # (Auto) 0.01 (0.00-0.20) K/uL Immature Gran # (Auto) 0.02 (0.01-0.20) K/uL PT 11.6 (9.0-12.0) Seconds INR 1.1 (0.9-1.1) APTT 31 (21-31) Seconds PTT Ratio 1.2 Sodium 136 (136-145) mmol/L Potassium 3.8 (3.5-5.1) mmol/L Chloride 99 (98-107) mmol/L Carbon Dioxide 30 (21-32) mmol/L Anion Gap 7 (3-11) BUN 19 (6-23) mg/dl Creatinine 0.91 (0.6-1.4) mg/dl Est Cr Clr Drug Dosing Not Reportable eGFR 88.44 BUN/Creatinine Ratio 20.9 H (10-20) Glucose 108 H (70-99(Fasting)) mg/dl Calcium 9.1 (8.6-10.3) mg/dl Total Bilirubin 1.5 H (0.2-1.0) mg/dl AST 16 (13-39) U/L ALT 8 (7-52) U/L Alkaline Phosphatase 60 (34-104) U/L Troponin I High Sens 9.4 (0-20) pg/ml Total Protein 7.0 (6.0-8.3) gm/dl Albumin 4.2 (3.4-5.0) gm/dl Globulin 2.8 (2.5-4.0) gm/dl Albumin/Globulin Ratio 1.5 (0.9-2) Adenovirus (PCR) Not Detected (NotDetected) B. pertussis DNA (PCR) Not Detected (NotDetected) B.parapertussis DNA PCR Not Detected (NotDetected) C. pneumoniae DNA (PCR) Not Detected (NotDetected) Coronavirus OC43 (PCR) Not Detected (NotDetected) Coronavirus HKU1 (PCR) Not Detected (NotDetected) Coronavirus 229E (PCR) Not Detected (NotDetected) SARS-CoV-2 (PCR) DETECTED A (NotDetected) Coronavirus NL63 (PCR) Not Detected (NotDetected) Human Metapneumovir PCR Not Detected (NotDetected) Influenza Type A (PCR) Not Detected (NotDetected) Influenza Type B (PCR) Not Detected (NotDetected) M. pneumoniae (PCR) Not Detected (NotDetected) Parainfluenza 1 (PCR) Not Detected (NotDetected) Parainfluenza 2 (PCR) Not Detected (NotDetected) Parainfluenza 3 (PCR) Not Detected (NotDetected) Parainfluenza 4 (PCR) Not Detected (NotDetected) RSV (PCR) Not Detected (NotDetected) Entero/Rhino (PCR) Not Detected (NotDetected) Administered Medications Discontinued Medications Acetaminophen (Acetaminophen 500 Mg Tab) 1,000 mg PO NOW STA Stop: 01/29/24 21:15 Last Admin: 01/29/24 21:23 Dose: 1,000 mg Documented By: GRACY Dexamethasone Sodium Phosphate (DexamethasonePf 10 Mg/Ml Vial) 6 mg IV NOW ONE Stop: 01/29/24 21:15 Last Admin: 01/29/24 21:24 Dose: 6 mg Documented By: GRACY Metoprolol Tartrate (Metoprolol Tartrate 1 Mg/Ml Vial) 5 mg IV NOW STA Stop: 01/29/24 21:42 Last Admin: 01/29/24 21:48 Dose: 5 mg Documented By: PAG Imaging Data Radiologist's Impression: Chest X-Ray 01/29/24 20:06 Exam(s): XR CXR 1 VIEW EXAM: XR Chest, 1 View CLINICAL HISTORY: Reason for exam: Chest pain, nonspecific. TECHNIQUE: Frontal view of the chest. COMPARISON: Prior chest x-ray from January 27, 2023. FINDINGS: Lungs: Moderately heavy peribronchial thickening of the central and lower lobe bronchi. No consolidation. Pleural space: Unremarkable. No pneumothorax. Heart: Cardiomegaly. Mediastinum: Unremarkable. Normal mediastinal contour. Bones/joints: Status post left shoulder arthroplasty. No acute fracture. IMPRESSION: Findings concerning for bronchitis, which may be of infectious or inflammatory etiologies. No consolidation or pleural effusion. Electronically signed by: Kayy Rand MD 01/29/24 23:12 PM Discharge Plan Visit Data Chief Complaint: Cardiac Assessment Stated Complaint: SLEEPY, SHAKEY, HEART RATE FAST, ED Provider: Shahid Madera Discharge Problem: COVID-19, Atrial fibrillation with RVR, Hypoxia Forms Stand Alone Forms: [facility] Prescriptions Prescriptions: No Action docusate sodium [Stool Softener] 100 mg capsule 100 mg PO QAM metoprolol succinate 50 mg tablet extended release 24 hr 25 mg PO QPM Rx Instructions: 25 MG in PM Eliquis 5 mg tablet 5 mg PO BID amoxicillin 500 mg capsule 2,000 mg PO ONCE Qty: 8 0RF Rx Instructions: Take 30-60 minutes prior to dental procedure tamsulosin 0.4 mg capsule 0.8 mg PO PM Qty: 180 3RF fluocinonide 0.05 % solution 1 applic topical BID Qty: 60 1RF miscellaneous medical supply Misc 1 ea miscellaneous ONCE MDD PLEASE PROVIDE LIFT CHAIR Qty: 1 0RF Rx Instructions: Patient needs a lift chair. ketoconazole 2 % shampoo 1 applic topical Q3D Qty: 120 1RF tramadol 50 mg tablet 100 mg PO TID Qty: 180 0RF furosemide 40 mg tablet 40 mg PO QAM cholecalciferol (vitamin D3) 50 mcg (2,000 unit) capsule 50 mcg PO DAILY Qty: 30 0RF mecobalamin (vitamin B12) 1,000 mcg tablet,disintegrating 1,000 mcg sublingual DAILY Qty: 30 5RF Rx Instructions: place 1 tablet under tongue the and allow to dissolve for at least 30 secs before swallowing. spironolactone 25 mg tablet 12.5 mg PO DAILY Qty: 30 2RF digoxin 125 mcg (0.125 mg) Tablet 125 mcg PO UD Rx Instructions: TAKES MON, WED, FRI Referrals Referrals: Chanda Weaver MD [Primary Care Provider] -
--- NOTE | 2024-01-29 22:14 | History & Physical Report ---
Date of Service January 29, 2024 Assessment & Plan (1) COVID-19: Plan: 73yo male presenting with weakness and fatigue, cough, fever and SOB - found to be POSITIVE for Covid-19 infection. Patient has never had Covid before. Did receive several vaccinations. Hypoxic on arrival initially to 89% on room air. Patient does not use home O2. -Admit to medical with telemetry -Maintain isolation precautions -Supplemental O2 as needed -Continue Dexamethasone 6gm IV daily -Tylenol PRN -Zofran PRN -Continue Apixaban (2) Atrial fibrillation with RVR: Plan: With elevated heart rate in setting of acute illness. Patient on Eliquis anticoagulation -Continue digoxin -Continue Metoprolol -Continue Apixaban (3) Hypertension: Plan: Chronic. Well controlled at present -Continue Metoprolol -Continue Spironolactone -Monitor Plan F/E/N - saline lock. electrolytes wnl, regular diet as tolerated Ppx - Continue Apixaban 5mg po BID Code - Full per discussion with patient Dispo - Admit to medical with telemetry History of Present Illness Chief Complaint: Covid-19 infection Primary Care Provider: Chanda Weaver MD Dwaine Anderson is a 73yo male presenting with Covid-19 infection. He became weak and fatigued over the last several days. Had some appetite loss as well. He has been sleeping for the last three days. +Fever, chills today as well as shortness of breath. Has been having some muscle twitches as well. HR today after dinner was 105. Not much cough. No vomiting or diarrhea. Patient has never had Covid-19 infection before. Did receive vaccinations x 4. Did have a family member with some sinus congestion. In the ER patient hypoxic to 88% on room air. Placed on NC 2L now saturating 96%. ER Coure: Dexamethasone 6mg IV Metoprolol 5mg IV Tylenol 1gm Allergies Allergy/AdvReac Type Severity Reaction Status Date / Time latex Allergy Mild Redness of Verified 10/07/23 14:28 Skin tapentadol [From Nucynta] Allergy Mild hallucinati Verified 10/07/23 14:28 ons adhesive Allergy Unknown AGUILAR WITH Verified 10/07/23 14:28 SPECIAL TAPE FOR SHOULDER SURG duloxetine AdvReac Mild dizziness, Verified 10/07/23 14:28 balance issues loratadine AdvReac Unknown Unknown Verified 01/30/24 00:48 Home Medications Medication Instructions Recorded Confirmed Type docusate sodium 100 mg capsule 100 mg PO QAM 03/06/19 01/29/24 History (Stool Softener) apixaban 5 mg tablet (Eliquis) 5 mg PO BID 09/06/19 01/29/24 History amoxicillin 500 mg capsule 2,000 mg (4 x 500 mg) PO ONCE #8 05/21/20 10/07/23 Rx caps furosemide 40 mg tablet 40 mg PO QAM 06/12/20 01/29/24 History cholecalciferol (vitamin D3) 50 50 mcg PO DAILY #30 caps 06/10/21 10/07/23 Rx mcg (2,000 unit) capsule spironolactone 25 mg tablet 12.5 mg (1/2 x 25 mg) PO DAILY #30 09/16/21 01/29/24 Rx tabs digoxin 125 mcg (0.125 mg) tablet 125 mcg PO UD 10/29/21 01/29/24 History mecobalamin (vitamin B12) 1,000 1,000 mcg sublingual DAILY #30 tabs 11/05/21 01/29/24 Rx mcg disintegrating tablet,sublingual metoprolol succinate 50 mg 25 mg PO QPM 09/27/22 01/29/24 History tablet,extended release 24 hr tamsulosin 0.4 mg capsule 0.8 mg (2 x 0.4 mg) PO PM #180 caps 01/04/23 01/29/24 Rx fluocinonide 0.05 % topical 1 applic topical BID #60 mL 03/22/23 01/29/24 Rx solution miscellaneous medical supply 1 ea miscellaneous ONCE Post total 12/07/23 Rx knee replacement #1 ea ketoconazole 2 % shampoo 1 applic topical Q3D #120 mL 12/27/23 01/29/24 Rx tramadol 50 mg tablet 100 mg (2 x 50 mg) PO TID #180 tabs 01/23/24 01/29/24 Rx Past Med/Surg History Problem List Hypoxia (Acute) Atrial fibrillation with RVR (Acute) COVID-19 (Acute) Chronic venous insufficiency Trigger finger of left hand 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 Ascending aorta enlargement mild to moderate per cardio records Aortic root dilation mild to moderate per cardio records Hypertension (Chronic) Headache (Acute) Rotator cuff arthropathy Atrial fibrillation (Acute 05/23/12) F/U DR TERRANCE SIMMONS Depression Chronic pain Right knee DJD Calcific Achilles tendinitis of right lower extremity History of CVA (cerebrovascular accident) 06/22/2011-[employer]ID[employer] SHORT TERM MEMORY LOSS, EASILY TIRED Chronic anticoagulation apixaban Chronic knee pain after total replacement of left knee joint Chronic pain in right foot Myofascial pain (Chronic) Pes anserinus tendonitis of left lower extremity Urinary incontinence Hammer toe of right foot Idiopathic polyneuropathy Rheumatoid arthritis Positional lightheadedness Positional vertigo Tinnitus Sensorineural hearing loss (SNHL) of both ears Gait abnormality Chronic maxillary sinusitis Imbalance Acquired deviated nasal septum B12 deficiency Left knee pain Medical History PFO (patent foramen ovale) follows with [facility] cardiology, Dr. Terrance Simmons Chronic back pain Sleep apnea UNABLE TO TOLERATE CPAP Pneumothorax HX Surgical History History of endoscopic sinus surgery 11/27/21-Dr. Littlejohn History of nasal septoplasty 11/27/21-Dr. Littlejohn Hx of colonoscopy Hx of cardiac cath 2011 - [facility]; DONE TO CHECK FOR BLOCKAGE AFTER CVA; NO STENTS, NO BLOCKAGE FOUND- History of left knee replacement x2. S/P shoulder joint replacement LEFT S/P hernia repair S/P bunionectomy RIGHT-WITH RECONSTRUCTION FOOT Family History Mother , age 89 of heart issues Breast cancer Heart disease Sister Colorectal cancer Brother Diabetes Sister Diabetes Father , age 69 with Parkinson's disease Primary Parkinson's disease Other No family history of adverse response to anesthesia No family history of bleeding disorder Denies family history of Ovarian cancer Prostate cancer Myocardial infarction Social History Smoking Status: Never smoker Second Hand Exposure: No; Do You Dip or Chew Tobacco: No; Tobacco Cessation Education Requested by Patient: No Hx Alcohol Use: Yes Alcohol type: beer Hx Substance Use: No Preferred Language: Mohawk Communication Ability: Effective Visual Impairment: No Limitations Hearing Ability: Normal Overhead Line Worker Required: No Beliefs That Will Affect Care: None marital status: Current Living Situation: Spouse and Family Current Living Situation Comment: and Son current occupational status: retired current occupation: mostly retired lang, 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 Other Information That Helps Us Care for You: No Feels Safe at Home: Yes Safety Concerns: Feels Safe At This Time Childhood Exposure to Second-Hand Smoke: Yes Diet: regular caffeine: Yes during the past year weight has: remained stable Dental Care, Regularly: No Physical Activity Frequency: Daily Seatbelt Use: always Sunscreen Use: No Assistive Devices: Cane, Denture - Upper and Glasses Assistive Devices Comment: pt has upper dentures but does not use Review of Systems Review of Systems: All systems reviewed & are unremarkable except as noted in HPI & below Physical Exam Physical Exam: General: patient ill in appearance, somnolent, AA&O x 4 Skin: warm, dry, intact, no rashes or lesions HEENT: NC/AT, PERRL, EOMI, anicteric sclera, conjunctiva without injection, external ear normal to inspection and nontender, nares patent, moist mucus membranes, dentition intact, no oropharyngeal lesions, neck supple, trachea midline, no LAD, no thyromegaly, no JVD Heart: +S1/S2, irregularly irregular, no m/r/g Lungs: equal air entry bilaterally, no rales/rhonchi/wheezes Abd: +BS, soft, NT/ND, no masses/organomegaly/ascites Ext: warm, 2+ pulses in UE/LE bilaterally, no clubbing/cyanosis or edema Neuro: nonfocal, patient AA&O x 4, speech intact, no facial droop, moving all extremities on command with equal strength 5/5 Results & Data Results & Data Vital Signs (Past 12 Hours) Vital Signs Temp Pulse Pulse Resp BP BP Pulse Ox 01/29/24 21:48 104 H 144/81 H 01/29/24 21:19 88 L 01/29/24 21:11 38.5 C H 117 H 18 155/85 H 88 L 01/29/24 21:05 103 H 01/29/24 20:02 37.1 C 118 H 16 145/85 H 93 O2 Del Method 01/29/24 21:48 01/29/24 21:19 Room Air 01/29/24 21:11 Room Air 01/29/24 21:05 01/29/24 20:02 Room Air Laboratory Results Laboratory Results WBC 6.54 K/ul (4.8-10.8) 01/29/24 20:11 RBC 4.95 M/uL (4.70-6.10) 01/29/24 20:11 Hgb 15.1 g/dl (14.0-18.0) 01/29/24 20:11 Hct 44.4 % (42.0-52.0) 01/29/24 20:11 MCV 89.7 fL (80.0-100.0) 01/29/24 20:11 MCH 30.5 pg (25.0-34.0) 01/29/24 20:11 MCHC 34.0 g/dL (32.0-36.0) 01/29/24 20:11 RDW Std Deviation 41.0 fL (36.4-46.3) 01/29/24 20:11 RDW Coeff of Abby 12.5 % (11.5-14.5) 01/29/24 20:11 Plt Count 161 K/uL (130-400) 01/29/24 20:11 MPV 11.5 fL (9.4-12.4) 01/29/24 20:11 Immature Gran % (Auto) 0.3 % 01/29/24 20:11 Neut % (Auto) 80.3 % 01/29/24 20:11 Lymph % (Auto) 8.0 % 01/29/24 20:11 [place] % (Auto) 10.6 % 01/29/24 20:11 Eos % (Auto) 0.6 % 01/29/24 20:11 Baso % (Auto) 0.2 % 01/29/24 20:11 Neut # (Auto) 5.26 K/uL (1.40-6.50) 01/29/24 20:11 Lymph # (Auto) 0.52 K/uL (1.20-3.40) L 01/29/24 20:11 [place] # (Auto) 0.69 K/uL (0.11-0.59) H 01/29/24 20:11 Eos # (Auto) 0.04 K/uL (0.00-0.50) 01/29/24 20:11 Baso # (Auto) 0.01 K/uL (0.00-0.20) 01/29/24 20:11 Immature Gran # (Auto) 0.02 K/uL (0.01-0.20) 01/29/24 20:11 PT 11.6 Seconds (9.0-12.0) 01/29/24 20:11 INR 1.1 (0.9-1.1) 01/29/24 20:11 APTT 31 Seconds (21-31) 01/29/24 20:11 PTT Ratio 1.2 01/29/24 20:11 Sodium 136 mmol/L (136-145) 01/29/24 20:11 Potassium 3.8 mmol/L (3.5-5.1) 01/29/24 20:11 Chloride 99 mmol/L (98-107) 01/29/24 20:11 Carbon Dioxide 30 mmol/L (21-32) 01/29/24 20:11 Anion Gap 7 (3-11) 01/29/24 20:11 BUN 19 mg/dl (6-23) 01/29/24 20:11 Creatinine 0.91 mg/dl (0.6-1.4) 01/29/24 20:11 Est Cr Clr Drug Dosing Not Reportable 01/29/24 20:11 eGFR 88.44 01/29/24 20:11 BUN/Creatinine Ratio 20.9 (10-20) H 01/29/24 20:11 Glucose 108 mg/dl (70-99(Fasting)) H 01/29/24 20:11 Calcium 9.1 mg/dl (8.6-10.3) 01/29/24 20:11 Total Bilirubin 1.5 mg/dl (0.2-1.0) H 01/29/24 20:11 AST 16 U/L (13-39) 01/29/24 20:11 ALT 8 U/L (7-52) 01/29/24 20:11 Alkaline Phosphatase 60 U/L (34-104) 01/29/24 20:11 Troponin I High Sens 9.4 pg/ml (0-20) 01/29/24 20:11 Total Protein 7.0 gm/dl (6.0-8.3) 01/29/24 20:11 Albumin 4.2 gm/dl (3.4-5.0) 01/29/24 20:11 Globulin 2.8 gm/dl (2.5-4.0) 01/29/24 20:11 Albumin/Globulin Ratio 1.5 (0.9-2) 01/29/24 20:11 Adenovirus (PCR) Not Detected (NotDetected) 01/29/24 20:11 B. pertussis DNA (PCR) Not Detected (NotDetected) 01/29/24 20:11 B.parapertussis DNA PCR Not Detected (NotDetected) 01/29/24 20:11 C. pneumoniae DNA (PCR) Not Detected (NotDetected) 01/29/24 20:11 Coronavirus OC43 (PCR) Not Detected (NotDetected) 01/29/24 20:11 Coronavirus HKU1 (PCR) Not Detected (NotDetected) 01/29/24 20:11 Coronavirus 229E (PCR) Not Detected (NotDetected) 01/29/24 20:11 SARS-CoV-2 (PCR) DETECTED (NotDetected) A 01/29/24 20:11 Coronavirus NL63 (PCR) Not Detected (NotDetected) 01/29/24 20:11 Human Metapneumovir PCR Not Detected (NotDetected) 01/29/24 20:11 Influenza Type A (PCR) Not Detected (NotDetected) 01/29/24 20:11 Influenza Type B (PCR) Not Detected (NotDetected) 01/29/24 20:11 M. pneumoniae (PCR) Not Detected (NotDetected) 01/29/24 20:11 Parainfluenza 1 (PCR) Not Detected (NotDetected) 01/29/24 20:11 Parainfluenza 2 (PCR) Not Detected (NotDetected) 01/29/24 20:11 Parainfluenza 3 (PCR) Not Detected (NotDetected) 01/29/24 20:11 Parainfluenza 4 (PCR) Not Detected (NotDetected) 01/29/24 20:11 RSV (PCR) Not Detected (NotDetected) 01/29/24 20:11 Entero/Rhino (PCR) Not Detected (NotDetected) 01/29/24 20:11 PG Care Time/CCT Total # of Minutes Spent Total Time Spent with Patient: Total time spent is greater than 50% in coordination of care (as documented) at patient's floor/unit and/or counseling patient: Coding Level of Care Code 41000 INT INP/OBS CARE 2/55MIN Diagnoses COVID-19 U07.1 Atrial fibrillation with RVR I48.91 Hypertension I10
--- NOTE | 2024-01-29 23:13 | XRay Report ---
Exam(s): XR CXR 1 VIEW EXAM: XR Chest, 1 View CLINICAL HISTORY: Reason for exam: Chest pain, nonspecific. TECHNIQUE: Frontal view of the chest. COMPARISON: Prior chest x-ray from January 27, 2023. FINDINGS: Lungs: Moderately heavy peribronchial thickening of the central and lower lobe bronchi. No consolidation. Pleural space: Unremarkable. No pneumothorax. Heart: Cardiomegaly. Mediastinum: Unremarkable. Normal mediastinal contour. Bones/joints: Status post left shoulder arthroplasty. No acute fracture. IMPRESSION: Findings concerning for bronchitis, which may be of infectious or inflammatory etiologies. No consolidation or pleural effusion. Electronically signed by: Kayy Rand MD 01/29/24 23:12 PM
[2024-01-30] MEDS ORDERED: ACETAMINOPHEN 325 MG TAB PO PRN (00:37)
[2024-01-30] MEDS ORDERED: DEXAMETHASONE SOD INJ 4 MG/ML VIAL IV STA (00:37)
[2024-01-30] MEDS ORDERED: ONDANSETRON INJ 2 MG/ML 2 ML VIAL IV PRN (00:37)
[2024-01-30 00:43] VITALS: RESP 18
[2024-01-30 01:01] LABS: Magnesium 1.9 mg/dl (1.7-2.4); Phosphorus 2.7 mg/dl (2.5-4.9)
[2024-01-30] MEDS: APIXABAN 5 MG TABLET PO SCH (01:12)
[2024-01-30 07:49] VITALS: BP 123/88; TEMP 97.9; O2SAT 95
[2024-01-30 08:00] LABS: Hematocrit (blood only) 42.9 % (42.0-52.0); Hemoglobin 14.9 g/dl (14.0-18.0); Mean Corpuscular Hemoglobin 30.8 pg (25.0-34.0); Mean Corpuscular Hgb Conc 34.7 g/dL (32.0-36.0); Mean Corpuscular Volume 88.6 fL (80.0-100.0); Mean Platelet Volume 11.2 fL (9.4-12.4); Platelet Count 169 K/uL (130-400); RDW Coefficient of Variation 12.4 % (11.5-14.5); RDW Standard Deviation 40.2 fL (36.4-46.3); Red Blood Count 4.84 M/uL (4.70-6.10); White Blood Count 4.75 K/ul (4.8-10.8)
[2024-01-30 08:18] LABS: BUN Creatinine Ratio 26.4 (10-20); Calcium 8.9 mg/dl (8.6-10.3); Creatinine Clr Calc Pharmacy 114.9 ml/min; Potassium 3.8 mmol/L (3.5-5.1)
[2024-01-30] MEDS: traMADol HCL 50 MG TABLET PO SCH (08:46)
[2024-01-30] MEDS: FUROSEMIDE 40 MG TAB PO SCH (08:47)
[2024-01-30] MEDS: SPIRONOLACTONE 12.5 MG TAB PO SCH (08:47)
[2024-01-30] MEDS: DOCUSATE SODIUM 100 MG CAP PO SCH (08:47)
[2024-01-30] MEDS ORDERED: dexAMETHasone 6 MG in SYRINGE 0 ML IV SCH (09:00)
--- NOTE | 2024-01-30 10:20 | Electrocardiogram Report ---
Test Reason : Blood Pressure : */* mmHG Vent. Rate : 111 BPM Atrial Rate : * BPM P-R Int : * ms QRS Dur : 86 ms QT Int : 308 ms P-R-T Axes : * -25 87 degrees QTcB Int : 418 ms Atrial fibrillation with rapid ventricular response with premature ventricular or aberrantly conducte d complexes Possible Old Anterior infarct (cited on or before 18-Nov-2022) Diffuse Nonspecific ST and T wave abnormality Abnormal ECG When compared with ECG of 18-Nov-2022 16:32, No significant change Confirmed by Ravi Muhammad ([id number]) on 01/30/2024 10:20:20 AM Referred By: REFERRED SELF Confirmed By: Ravi Muhammad
--- NOTE | 2024-01-30 11:46 | Discharge Summary ---
Discharge Summary Date of Service January 30, 2024 Principal Dx & Hospital Course #1 = Principal Diagnosis (1) COVID-19: Suspected viral illness on admission. COVID positivity by nasal swab. Hypoxia was mild and transient in the ED and now has resolved. He is now on room air. He was instructed to start taking vitamin D supplement. He does not require inpatient hospitalization at this time. (2) Hypoxia: Transient on admission. Now resolved. He is on room air (3) Atrial fibrillation with RVR: Metoprolol XL dosage increased from 25 to 50 mg daily. Now rate controlled. Telemetry. Continue digoxin and Eliquis. (4) Hypertension: Stable. Continue current medical management Plan Home today, January 29. Take vitamin D supplement daily. All other medications remain the same Admission HPI Per Admitting Provider Dwaine Anderson is a 73yo male presenting with Covid-19 infection. He became weak and fatigued over the last several days. Had some appetite loss as well. He has been sleeping for the last three days. +Fever, chills today as well as shortness of breath. Has been having some muscle twitches as well. HR today after dinner was 105. Not much cough. No vomiting or diarrhea. Patient has never had Covid-19 infection before. Did receive vaccinations x 4. Did have a family member with some sinus congestion. In the ER patient hypoxic to 88% on room air. Placed on NC 2L now saturating 96%. ER Coure: Dexamethasone 6mg IV Metoprolol 5mg IV Tylenol 1gm Discharge Exam General-alert and oriented x3, no fever, no chills HEENT-head atraumatic and normocephalic, pupils equal and reactive to light, extraocular muscles intact Neck-no lymphadenopathy or thyromegaly, trachea midline Chest-clear to auscultation. No rales, wheezing or rhonchi Cardiac-irregular rhythm. Controlled rate. Normal S1 and S2 Abdomen-normal bowel sounds, no hepatosplenomegaly Extremities-no cyanosis, clubbing, or edema Neuro-cranial nerves II through XII intact, motor and sensory function within normal limits, strength symmetrical, no focal deficits Psych-normal affect, normal mood Discharge Plan Discharge Items Patient Disposition: Home - Self-Care Reason For Visit: COVID-19, HYPOXIA Discharge Diagnosis: Suspected viral illness, COVID positivity by nasal swab, transient hypoxia, chronic atrial fibrillation with rapid ventricular rate Activity: Resume your previous activity Non-emergency contact: Primary Care Provider Call non-emergency contact if: your symptoms worsen Follow-up/Referrals: Chanda Weaver MD [Primary Care Provider] - Diet: Regular and Heart Healthy Addtl Attending Provider Instructions: Metoprolol XL has been increased from 25 to 50 mg once a day. A prescription has been sent to the pharmacy at [facility] on [address]. Take vitamin D 3 supplement daily. This does not require any prescription. All other medications remain the same Pending Studies at Discharge: No Stand-Alone Forms: My [facility], Smoking Cessation Medications and DC Order Prescriptions: New metoprolol succinate 50 mg Tablet Extended Release 24 Hr 50 mg PO QPM Qty: 30 0RF Continued docusate sodium [Stool Softener] 100 mg capsule 100 mg PO QAM Eliquis 5 mg tablet 5 mg PO BID amoxicillin 500 mg capsule 2,000 mg PO ONCE Qty: 8 0RF Rx Instructions: Take 30-60 minutes prior to dental procedure tamsulosin 0.4 mg capsule 0.8 mg PO PM Qty: 180 3RF fluocinonide 0.05 % solution 1 applic topical BID Qty: 60 1RF miscellaneous medical supply Misc 1 ea miscellaneous ONCE MDD PLEASE PROVIDE LIFT CHAIR Qty: 1 0RF Rx Instructions: Patient needs a lift chair. ketoconazole 2 % shampoo 1 applic topical Q3D Qty: 120 1RF tramadol 50 mg tablet 100 mg PO TID Qty: 180 0RF furosemide 40 mg tablet 40 mg PO QAM cholecalciferol (vitamin D3) 50 mcg (2,000 unit) capsule 50 mcg PO DAILY Qty: 30 0RF mecobalamin (vitamin B12) 1,000 mcg tablet,disintegrating 1,000 mcg sublingual DAILY Qty: 30 5RF Rx Instructions: place 1 tablet under tongue the and allow to dissolve for at least 30 secs before swallowing. spironolactone 25 mg tablet 12.5 mg PO DAILY Qty: 30 2RF digoxin 125 mcg (0.125 mg) Tablet 125 mcg PO UD Rx Instructions: TAKES MON, WED, FRI Discontinued metoprolol succinate 50 mg tablet extended release 24 hr 25 mg PO QPM Rx Instructions: 25 MG in PM Discharge Orders: Discharge Order (Routine); Ordered 01/30/24 Ordered By: Sim R. Columba Admission Data Admit Date/Time: 01/29/24 22:26 Attending Provider: Sim Waterman Admit Provider: Veronica Daniel Primary Care Provider: Chanda Weaver Other Providers: Veronica Daniel Hospital Stay Data Consultations 01/29/24 21:50 ED Decision to Admit Stat Pending Results Patient Have Any Pending Studies at Discharge: No Discharge Instructions Given to Patient (Per Discharging Provider) Metoprolol XL has been increased from 25 to 50 mg once a day. A prescription has been sent to the pharmacy at [facility] on [address]. Take vitamin D 3 supplement daily. This does not require any prescription. All other medications remain the same Total Time Total Time Spent Total Time Spent (In Minutes): 50 minutes Coding Level of Care Code 44418 INP/OBS DISCH >30 MIN Diagnoses COVID-19 U07.1 Hypoxia R09.02 Atrial fibrillation with RVR I48.91 Hypertension I10
--- NOTE | 2024-01-30 12:21 | Communication Note ---
Date of Service: January 30, 2024 By CMS guidelines, a determination that the admission or continued stay is not medically necessary has been made by a member of the UR committee and a phy sician for this hospital stay, therefore a Code 44 will be completed and the Inpatient admission will be changed to outpatient.
[2024-01-30 12:23] VITALS: PULSE 93
[2024-01-30] MEDS ORDERED: DIGOXIN 0.125 MG TAB PO SCH (16:00)
[2024-01-30] MEDS ORDERED: TAMSULOSIN HCL 0.4 MG CAP PO SCH (21:00)
[2024-01-30] MEDS ORDERED: METOPROLOL SUCC 50MG EXT REL TAB PO SCH (21:00)
[2024-01-30] MEDS ORDERED: METOPROLOL SUCC 25MG EXT REL TAB PO SCH (21:00)
== END 2024-01-30 12:57 | disposition home or self-care (01) | DRG 178 ==
LOC: ED 19:59 → OBSVTOIN 22:26 → 2N 22:26 → SUATTDRO 22:26 → INTOOBSV 22:26 → 2N 23:45